=== PATIENT | male | born 1950 | race Caucasian/White ===

== ENCOUNTER 2020-05-12 14:19 | Emergency (ER) | payer MEDICARE ==
[~2020-05-12] VITALS: Ht 180.3 cm; Wt 93.0 kg
[~2020-05-12 14:19] MED LIST: ATENOLOL50 MG PO; CLOPIDOGREL75 MG PO; ERYTHROMYCIN OU; ISOSORBIDE MONO30 MG PO; ROSUVASTATIN CA10 MG PO
[2020-05-12] MEDS ORDERED: HYDROCODONE/APAP 5MG-325MG TAB ONE (14:53)
[2020-05-12] MEDS ORDERED: HYDROCODONE/APAP 5MG-325MG TAB PO ONE (15:15)
--- NOTE | 2020-05-12 15:19 | Diagnostic Imaging Report ---
EXAM: FOOT 3 VIEW RT - [facility] DATE: 05/12/2020 3:05 PM INDICATION: Right foot pain COMPARISON: None FINDINGS: AP, oblique, lateral views are obtained of the right foot. There is no evidence for acute fracture or dislocation. No focal lytic or blastic abnormality is identified. Accessory ossicle noted adjacent to the navicular. Mild degenerative changes noted within the midfoot. Mild plantar calcaneal spurring noted. The surrounding soft tissues are unremarkable without evidence for radiopaque foreign body. IMPRESSION: No acute radiographic abnormality identified within the right foot. Signed by: Dr. Chavez Chua MD on 05/12/2020 3:16 PM
[2020-05-12 16:29] LABS: BASOPHILS # (AUTO) 0.1 (0.0-0.1); BASOPHILS % 0.6 % (0.0-1.0); EOSINOPHILS # (AUTO) 0.3 (0.0-0.4); EOSINOPHILS % 3.8 % (0.0-6.0); HEMATOCRIT 41.8 % (38.2-49.6); HEMOGLOBIN 14.5 g/dL (14.0-18.0); LYMPHOCYTES # (AUTO) 2.2 (1.0-3.2); LYMPHOCYTES % 25.5 % (18.0-39.1); MEAN CORPUSCULAR HEMOGLOBIN 31.9 pg (28-32); MEAN CORPUSCULAR HGB CONC 34.7 g/dL (31-35); MEAN CORPUSCULAR VOLUME 92.1 fL (81-99); MONOCYTES # (AUTO) 0.7 (0.2-0.8); MONOCYTES % 8.5 % (4.4-11.3); NEUTROPHILS # (AUTO) 5.2 (2.1-6.9); NEUTROPHILS % 61.1 % (38.7-80.0); PLATELET COUNT 136 x10e3/uL (140-360); RED BLOOD COUNT 4.54 x10e6/uL (4.3-5.7); RED CELL DISTRIBUTION WIDTH 12.5 % (11.7-14.4)
[2020-05-12 16:55] VITALS: BP 137/79
--- NOTE | 2020-05-12 17:06 | Emergency Department Note ---
History of Present Illnes History of Present Illness Chief Complaint: Extremity Trauma/Pain History of Present Illness This is a 69 year old male Chief Complaint Comment PT STATED HE IS HAVING RIGHT FOOT AND ANKLE PAIN THAT STARTED IN HIS RIGHT GREAT TOE X2 DAYS AGO, PT COMPLAINS OF PAIN, SWELLIING AND REDNESS TO HIS RIGHT FOOT AND ANKLE. . Historian: Patient Arrival Mode: Car Onset (how long ago): day(s) (2) Location: right foot Quality: shrp Radiation: Reports non-radiation Severity: moderate Onset quality: gradual Duration (how long): day(s) (2) Timing of current episode: constant Progression: worsening Chronicity: new Context: Denies recent illness, Denies recent surgery, Denies recent immobilization, Denies recent travel, Denies trauma/injury, Denies new medications, Denies hx of DVT/PE, Denies non-compliance w/ medications, Denies other Relieving factors: none Exacerbating factors: none Associated symptoms: Reports denies other symptoms Treatments prior to arrival: none Past Medical/Family History Physician Review I have reviewed the patient's past medical and family history. Any updates have been documented here. Past Medical History Recent Fever: No Clinical Suspicion of Infectio: No New/Unexplained Change in Ment: No Past Medical History: Hypertension, Hyperlipedemia Past Surgical History: Cholecysctectomy, Colon Resection Other Surgery: 18" COLON REMOVED AFTER 2 DOZEN RAW OYSTERS AND LEAD TO COLON SX HAD COLOSTOMY AND NOW GONE LFT HAND LACERATION REPAIR FROM PLATE GLASS CUT Heart cath with ballooning KIDNEY STONES Social History Smoking Cessation: Never Smoker Counseling Performed: No Alcohol Use: None Any Illegal Drug Use: No Physically hurt or threatened: No Other Any Pre-Existing Lines (PICC,: No Review of Systems Review of Systems Constitutional: Reports no symptoms EENTM: Reports no symptoms Cardiovascular: Reports no symptoms Respiratory: Reports no symptoms Gastrointestinal: Reports no symptoms Genitourinary: Reports no symptoms Musculoskeletal: Reports as per HPI Integumentary: Reports no symptoms Neurological: Reports no symptoms Psychological: Reports no symptoms Endocrine: Reports no symptoms Hematological/Lymphatic: Reports no symptoms Physical Exam Related Data Allergies: Coded Allergies: fentanyl (Verified Adverse Reaction, Intermediate, hallucinations, 11/04/19) Triage Vital Signs Vital Signs Date Time Temp Pulse Resp B/P (MAP) Pulse Ox O2 Delivery O2 Flow Rate FiO2 05/12/20 14:30 99.7 73 16 143/82 96 Room Air Vital signs reviewed: Yes Physical Exam CONSTITUTIONAL HENT EYES NECK PULMONARY CARDIOVASCULAR GASTROINTESTINAL GENITOURINARY SKIN MUSCULOSKELETAL Musculoskeletal: Present tenderness (right foot), Present other NEUROLOGICAL PSYCHOLOGICAL Results Laboratory Result Diagram: 05/12/20 1450 Laboratory Laboratory Tests Test 05/12/20 14:50 White Blood Count 8.44 x10e3/uL (4.8-10.8) Red Blood Count 4.54 x10e6/uL (4.3-5.7) Hemoglobin 14.5 g/dL (14.0-18.0) Hematocrit 41.8 % (38.2-49.6) Mean Corpuscular Volume 92.1 fL (81-99) Mean Corpuscular Hemoglobin 31.9 pg (28-32) Mean Corpuscular Hemoglobin Concent 34.7 g/dL (31-35) Red Cell Distribution Width 12.5 % (11.7-14.4) Platelet Count 136 x10e3/uL (140-360) Neutrophils (%) (Auto) 61.1 % (38.7-80.0) Lymphocytes (%) (Auto) 25.5 % (18.0-39.1) Monocytes (%) (Auto) 8.5 % (4.4-11.3) Eosinophils (%) (Auto) 3.8 % (0.0-6.0) Basophils (%) (Auto) 0.6 % (0.0-1.0) Neutrophils # (Auto) 5.2 (2.1-6.9) Lymphocytes # (Auto) 2.2 (1.0-3.2) Monocytes # (Auto) 0.7 (0.2-0.8) Eosinophils # (Auto) 0.3 (0.0-0.4) Basophils # (Auto) 0.1 (0.0-0.1) Absolute Immature Granulocyte (auto 0.04 x10e3/uL (0-0.1) Uric Acid 8.9 mg/dL (4.8-8.0) Lab results reviewed: Yes Imaging Imaging results reviewed: Yes Assessment & Plan Medical Decision Making MDM gout contuson Reassessment Reassessment better Assessment & Plan Final Impression: (1) Acute gout (2) Right foot pain Depart Disposition: HOME, SELF-CARE Last Vital Signs Date Time Temp Pulse Resp B/P (MAP) Pulse Ox O2 Delivery O2 Flow Rate FiO2 05/12/20 14:30 99.7 73 16 143/82 96 Room Air Home Meds Reported Medications [Erythromycin Ointmt] No Conflict Check, OU PRN 11/04/19 Isosorbide Mononitrate (ISOSORBIDE MONONITRATE ER) 30 Mg Tab.er.24h, 30 MG PO DAILY, #30 TAB 11/04/19 Clopidogrel Bisulfate (CLOPIDOGREL) 75 Mg Tablet, 75 MG PO DAILY, #30 TAB 11/04/19 Rosuvastatin Calcium (Rosuvastatin Calcium) 10 Mg Tablet, 10 MG PO DAILY 11/04/19 Atenolol (ATENOLOL) 50 Mg Tablet, 100 MG PO DAILY 11/04/19 Medications in the ED Acetaminophen/ Hydrocodone Bitart 1 ea STK-MED ONCE .ROUTE ; Start 05/12/20 at 14:53; Stop 05/12/20 at 14:50; Status DC Acetaminophen/ Hydrocodone Bitart 1 ea ONCE ONCE PO Last administered on 05/12/20at 15:15; Admin Dose 1 EA; Start 05/12/20 at 15:15; Stop 05/12/20 at 15:16; Status UNV MARCO REYES MD May 12, 2020 17:06
--- OUTSIDE RECORDS SUMMARY | 2020-05-14 20:22 | XMS REPORT | Clinical Summary ---
Author Author [facility] Organization [facility] Address Unknown Phone Unavailable Care Team Providers Care Adventure Guide Name Role Phone Asked, No Pcp PCP Unavailable Allergies No Known Allergies Medications End Date Status Medication Sig Dispensed Refills Start Date Active atenolol (TENORMIN) 50 MG Take 50 mg by 0 tablet mouth daily. Active aspirin (ECOTRIN) 81 MG Take 81 mg by 0 enteric coated tablet mouth daily. Active Problems Not on file Social History Date Tobacco Use Types Packs/Day Years Used Never Smoker Drinks/Week oz/Week Comments Alcohol Use No Sex Assigned at Date Recorded Not on file Industry Job Start Date Occupation Not on file Not on file Not on file Travel End Travel History Travel Start No recent travel history available. Last Filed Vital Signs Not on file Plan of Treatment Not on file Results Not on fileafter 05/12/2019 Insurance Type Payer Benefit Subscriber ID Effective Phone Address Plan / Dates Group Commercial AARP AARP xxxxxxxxxxx [id number] SUPPLEMENT resent Medicare MEDICARE MEDICARE xxxxxxxxxx 2014- [place], PART A AND Present [place] Advance Directives For more information, please contact: [phone] Patient Personal Development Coach Explanation Type Date Recorded Advance Directives, Living Will and Medical Power of Children'S Lunchroom Supervisor
--- OUTSIDE RECORDS SUMMARY | 2020-05-14 20:22 | XMS REPORT | Continuity of Care Document ---
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 Name Role Phone NONSTAFF PCP Unavailable MARCO REYES Attphys Unavailable ELIF CAMARILLO Attphybrian Unavailable Payers Payer Name Policy Type Policy Number Effective Date Expiration Date Brian palacio [facility] [id number] 2019 00:00:00 [facility] Medicare A & B [id number] 2014 00:00:00 [facility] Problems Condition Name Condition Details Condition Category Status Onset Date Resolution Date Last Treatment Date Treating Clinician Comments Source Acute gout Problem Active [facility] Right foot pain Problem Active [facility] Allergies, Adverse Reactions, Alerts Allergy Name Allergy Type Status Severity Reaction(s) Onset Date Inacti ve Date Treating Clinician Comments Source Fentanyl Propensity to adverse reactions Active Moderate bacon ucinations 2019-11-04 00:00:00 [facility] Social History Social Habit Start Date Stop Date Quantity Comments Source Sex Assigned At Ekaterina montgomeryankit Flower Alcohol intake 2018-04-18 00:00:00 2018-04-18 00:00:00 Current non-drinker of alcohol (finding) Spencer Flower Smoking Status Start Date Stop Date Source Never smoker Spencer craft Medications Ordered Medication Name Filled Medication Name Start Date Stop Da te Current Medication? Ordering Clinician Indication Dosage Frequency Signature (SIG) Comments Components Source atenolol (TENORMIN) 50 MG tablet 2018-04-18 21:27:03 Yes 50mg QD Take 50 mg by mouth daily. Spencer Flower aspirin (ECOTRIN) 81 MG enteric coated tablet 2018-04-18 21:27:0 3 Yes 81mg QD Take 81 mg by mouth daily. Adela Cuevasist Atenolol Atenolol Yes 100 Daily [facility] Clopidogrel Bisulfate (Clopidogrel) 75 Mg TABLET Clopi dogrel Bisulfate (Clopidogrel) 75 Mg TABLET Yes 75 Daily [facility] Erythromycin Ointmt Erythromycin Ointmt Yes As Needed [facility] Isosorbide Mononitrate (Isosorbide Mononitrate Er) 30 Mg TAB.ER.24H Isosorbide Mononitrate (Isosorbide Mononitrate Er) 30 Mg TAB.ER.24H Yes 30 Daily [facility] Rosuvastatin Calcium Rosuvastatin Calcium Yes 10 Daily [facility] Vital Signs Vital Name Observation Time Observation Value Comments Source Body Temperature 2020-05-12 16:55:00 99.1 [degF] [facility] Weight 2020-05-12 14:30:00 205 [lb_av] [facility] BMI (Body Mass Index) 2020-05-12 14:30:00 28.6 kg/m2 [facility] Procedures Procedure Date / Time Performed Performing Clinician Amrita neal DILATION OF RIGHT URETER WITH INTRALUMINAL DEVICE, ENDO 00:00:00 [facility] FLUOROSCOPY OF KIDNEY, URETER & BLADDER USING L OSM CO NTRAST 2019-11-04 00:00:00 [facility] X-ray of chest, two views 2019-11-03 00:00:00 ELIF CAMARILLO [facility] CT of abdomen and pelvis without contrast 2019-11-03 00:00:00 [facility] Plan of Care Planned Activity Planned Date Details Comments Source Instructions Gout [facility] Encounters Start Date/Time End Date/Time Encounter Type Admission Type Attendi [facility] Facility Care Department Encounter ID Source 2020-05-12 14:31:00 2020-05-12 17:09:00 Departed Emergency Room MARCO REYES [facility] [id number] [facility] 2019-11-05 07:54:00 2019-11-07 13:14:00 Discharged Inpatient 1 ELIF CAMARILLO [facility] [id number] [facility] Results Test Description Test Time Test Comments Results Result Comments Source FOOT 3 VIEW RT - HOPD 2020-05-12 15:13:00 [facility] [address] [address] Patient Name: JERRY ALLISON MR #: [id number] : 1950 Age/Sex: 69/M Req #: [id number] Adm Physician: Ordered by: MARCO REYES MD Report #: [id number] Location: [facility] Room/Bed: Procedure: [id number] HOPD/FOOT 3 VIEW RT - HOPD Exam Date: 05/12/20 Exam Time: 1505 REPORT STATUS: Signed EXAM: FOOT 3 VIEW RT - [facility] DATE: 05/12/2020 3:05 PM INDICATION: Right foot pain COMPARISON: None FINDINGS: AP, oblique, lateral views are obtained of the right foot. There is no evidence for acute fracture or dislocation. No focal lytic or blastic abnormality is identified. Accessory ossicle noted adjacent to the navicular. Mild degenerative changes noted within the midfoot. Mild plantar calcaneal spurring noted. The surrounding soft tissues are unremarkable without evidence for radiopaque foreign body. IMPRESSION: No acute radiographic abnormality identified within the right foot. Signed by: Dr. Chavez Chua MD on 05/12/2020 3:16 PM Dictated By: CHAVEZ CHUA MD [id number] Transcribed By: BECKIE on 05/12/202 COPY TO: MARCO REYES MD Blood leukocytes automated count (number/volume) 2020-05-12 14:50:00 Test Item White Blood Count (test code = 6690-2) 8.44 4.8-10.8 [facility] erythrocytes automated count (number/volume)2020-05-12 14:50:00* Test Item Value Reference Range Interpretation Comments Red Blood Count (test code = 789-8) 4.54 4.3-5.7 [facility] TempleBlood hemoglobin measurement (moles/volume)2020-05-12 14:50:00* Test Item Value Reference Range Interpretation Comments Hemoglobin (test code = 72130-2) 14.5 14.0-18.0 [facility] TempleAutomated blood hematocrit (volume fraction)2020-05-12 14:50:00* Test Item Value Reference Range Interpretation Comments Hematocrit (test code = 4544-3) 41.8 38.2-49.6 [facility] TempleAutomated erythrocyte mean corpuscular jowjsx1226-65-22 14:50:00* Test Item Value Reference Range Interpretation Comments Mean Corpuscular Volume (test code = 787-2) 92.1 81-99 [facility] TempleAutomated erythrocyte mean corpuscular hemoglobin (mass per erythrocyte)2020-05-12 14:50:00* Test Item Value Reference Range Interpretation Comments Mean Corpuscular Hemoglobin (test code = 785-6) 31.9 28-32 [facility] TempleAutomated erythrocyte mean corpuscular hemoglobin concentration measurement (mass/volume)2020-05-12 14:50:00* Test Item Value Reference Range Interpretation Comments Mean Corpuscular Hemoglobin Concent (test code = 786-4) 34.7 31-35 [facility] TempleRDW TkmOt-Hcn3710-37-29 14:50:00* Test Item Value Reference Range Interpretation Comments Red Cell Distribution Width (test code = 43657-3) 12.5 11.7 -14.4 [facility] TempleAutomated blood platelet count (count/volume)2020-05-12 14:50:00* Test Item Value Reference Range Interpretation Comments Platelet Count (test code = 777-3) 136 140-360 [facility] TempleAutomated blood segmented neutrophil count as percentage of total vwnpodcild4541-63-51 14:50:00* Test Item Value Reference Range Interpretation Comments Neutrophils (%) (Auto) (test code = 63150-2) 61.1 38.7-80.0 [facility] TempleAutomated blood lymphocyte count as percentage ot total yxkgxwmemp2475-81-84 14:50:00* Test Item Value Reference Range Interpretation Comments Lymphocytes (%) (Auto) (test code = 736-9) 25.5 18.0-39.1 [facility] TempleAutomated blood monocyte count as percentage of total rnxptpsjez7944-86-11 14:50:00* Test Item Value Reference Range Interpretation Comments Monocytes (%) (Auto) (test code = 5905-5) 8.5 4.4-11.3 [facility] TempleAutomated blood eosinophil count as percentage of total fdmgrwyans0175-40-86 14:50:00* Test Item Value Reference Range Interpretation Comments Eosinophils (%) (Auto) (test code = 713-8) 3.8 0.0-6.0 [facility] TempleAutomated blood basophil count as percentage of total szqqxqhwfc4111-05-69 14:50:00* Test Item Value Reference Range Interpretation Comments Basophils (%) (Auto) (test code = 706-2) 0.6 0.0-1.0 [facility] TempleFluoroscopic procedure less than one hour gpjefhis6701-06-46 14:50:00* Test Item Value Reference Range Interpretation Comments IM GRANULOCYTES % (test code = IM GRANULOCYTES %) 0.5 0.0- 1.0 [facility] TempleAutomated blood neutrophil count 2020-05-12 14:50:00* Test Item Value Reference Range Interpretation Comments Neutrophils # (Auto) (test code = 751-8) 5.2 2.1-6.9 [facility] TempleBlood lymphocytes count (number/volume) 2020-05-12 14:50:00* Test Item Value Reference Range Interpretation Comments Lymphocytes # (Auto) (test code = 13220-9) 2.2 1.0-3.2 [facility] TempleBlood monocytes automated count (number/volume)2020-05-12 14:50:00* Test Item Value Reference Range Interpretation Comments Monocytes # (Auto) (test code = 742-7) 0.7 0.2-0.8 [facility] TempleAutomated blood eosinophil count 2020-05-12 14:50:00* Test Item Value Reference Range Interpretation Comments Eosinophils # (Auto) (test code = 711-2) 0.3 0.0-0.4 [facility] TempleAutomated blood basophil count (count/volume)2020-05-12 14:50:00* Test Item Value Reference Range Interpretation Comments Basophils # (Auto) (test code = 704-7) 0.1 0.0-0.1 [facility] TempleFluoroscopic procedure less than one hour hvlconoj5675-44-75 14:50:00* Test Item Value Reference Range Interpretation Comments Absolute Immature Granulocyte (auto (rafiq t code = Absolute Immature Granulocyte (auto) 0.04 0-0.1 [facility] plasma uric acid measurement (mass/volume)2020-05-12 14:50:00* Test Item Value Reference Range Interpretation Comments Uric Acid (test code = 3084-1) 8.9 4.8-8.0 [facility]odium Vnqup3714-89-28 05:02:00* Test Item Value Reference Range Interpretation Comments Sodium Level (test code = 2951-2) 143 136-145 [facility] TemplePotassium Fxoss1810-38-20 05:02:00* Test Item Value Reference Range Interpretation Comments Potassium Level (test code = 2823-3) 3.6 3.5-5.1 [facility] TempleChloride Alfuq7970-52-51 05:02:00* Test Item Value Reference Range Interpretation Comments Chloride Level (test code = 2075-0) 112 98-107 H [facility] TempleCarbon Dioxide Eisfj9299-73-63 05:02:00* Test Item Value Reference Range Interpretation Comments Carbon Dioxide Level (test code = 2028-9) 21 22-29 L [facility] TempleAnion Brp4416-28-04 05:02:00* Test Item Value Reference Range Interpretation Comments Anion Gap (test code = 84686-8) 13.6 8-16 [facility] TempleBlood Urea Glxwusdf8879-50-98 05:02:00* Test Item Value Reference Range Interpretation Comments Blood Urea Nitrogen (test code = 3094-0) 15 7-26 [facility] TempleCreatinine2020-01-24 05:02:00* Test Item Value Reference Range Interpretation Comments Creatinine (test code = 2160-0) 1.28 0.72-1.25 H [facility] TempleBUN/Creatinine Yuzzn5447-33-34 05:02:00* Test Item Value Reference Range Interpretation Comments BUN/Creatinine Ratio (test code = 3097-3) 12 - [facility] TempleEstimat Glomerular Filtration Rate 2019-11-07 05:02:00* Test Item Value Reference Range Interpretation Comments Estimat Glomerular Filtration Rate (test code = 256533870) 56 >60 L Ranges were taken from the National Kidney Disease Education Program and the April [facility] Kidney Foundation literature.Reference ranges:60 or greater: Jdlsrt67-40 ( for 3 consecutive months): Chronic kidney disease 15 or less: Kidney failureBaylor Scott & White Medical Center – TempleGlucose Dbkoz1362-00-55 05:02:00* Test Item Value Reference Range Interpretation Comments Glucose Level (test code = WSI3513) 110 74-118 [facility] TempleCalcium Idybc3364-84-73 05:02:00* Test Item Value Reference Range Interpretation Comments Calcium Level (test code = 33016-0) 8.6 8.4-10.2 [facility] TempleWhite Blood Kreca9792-21-04 04:44:00* Test Item Value Reference Range Interpretation Comments White Blood Count (test code = 6690-2) 7.69 4.8-10.8 [facility] TempleRed Blood Wfrqe5832-05-43 04:44:00* Test Item Value Reference Range Interpretation Comments Red Blood Count (test code = 789-8) 3.85 4.3-5.7 L [facility] TempleHemoglobin2020-01-24 04:44:00* Test Item Value Reference Range Interpretation Comments Hemoglobin (test code = 15897-5) 12.7 14.0-18.0 L [facility] TempleHematocrit2020-01-24 04:44:00* Test Item Value Reference Range Interpretation Comments Hematocrit (test code = 4544-3) 36.4 38.2-49.6 L [facility] TempleMean Corpuscular Jlfyjw6805-55-38 04:44:00* Test Item Value Reference Range Interpretation Comments Mean Corpuscular Volume (test code = 787-2) 94.5 81-99 [facility] TempleMean Corpuscular Latsrilgff1614-17-42 04:44:00* Test Item Value Reference Range Interpretation Comments Mean Corpuscular Hemoglobin (test code = 785-6) 33.0 28-32 H [facility] TempleMean Corpuscular Hemoglobin Concent 2019-11-07 04:44:00* Test Item Value Reference Range Interpretation Comments Mean Corpuscular Hemoglobin Concent (test code = 786-4) 34.9 31-35 [facility] TempleRed Cell Distribution Duobb1974-79-72 04:44:00* Test Item Value Reference Range Interpretation Comments Red Cell Distribution Width (test code = 82079-8) 13.2 11.7 -14.4 [facility] TemplePlatelet Ehers0874-35-09 04:44:00* Test Item Value Reference Range Interpretation Comments Platelet Count (test code = 777-3) 121 140-360 L [facility] TempleNeutrophils (%) (Auto)2019-11-07 04:44:00 * Test Item Value Reference Range Interpretation Comments Neutrophils (%) (Auto) (test code = 73706-0) 54.4 38.7-80.0 [facility] TempleLymphocytes (%) (Auto)2019-11-07 04:44:00 * Test Item Value Reference Range Interpretation Comments Lymphocytes (%) (Auto) (test code = 736-9) 27.7 18.0-39.1 [facility] TempleMonocytes (%) (Auto)2019-11-07 04:44:00* Test Item Value Reference Range Interpretation Comments Monocytes (%) (Auto) (test code = 5905-5) 10.1 4.4-11.3 [facility] TempleEosinophils (%) (Auto)2019-11-07 04:44:00 * Test Item Value Reference Range Interpretation Comments Eosinophils (%) (Auto) (test code = 713-8) 3.9 0.0-6.0 [facility] TempleBasophils (%) (Auto)2019-11-07 04:44:00* Test Item Value Reference Range Interpretation Comments Basophils (%) (Auto) (test code = 706-2) 0.8 0.0-1.0 [facility] TempleIM GRANULOCYTES %2019-11-07 04:44:00* Test Item Value Reference Range Interpretation Comments IM GRANULOCYTES % (test code = IM GRANULOCYTES %) 3.1 0.0- 1.0 H [facility] TempleNeutrophils # (Auto)2019-11-07 04:44:00* Test Item Value Reference Range Interpretation Comments Neutrophils # (Auto) (test code = 751-8) 4.2 2.1-6.9 [facility] TempleLymphocytes # (Auto)2019-11-07 04:44:00* Test Item Value Reference Range Interpretation Comments Lymphocytes # (Auto) (test code = 76422-6) 2.1 1.0-3.2 [facility] TempleMonocytes # (Auto)2019-11-07 04:44:00* Test Item Value Reference Range Interpretation Comments Monocytes # (Auto) (test code = 742-7) 0.8 0.2-0.8 [facility] TempleEosinophils # (Auto)2019-11-07 04:44:00* Test Item Value Reference Range Interpretation Comments Eosinophils # (Auto) (test code = 711-2) 0.3 0.0-0.4 [facility] TempleBasophils # (Auto)2019-11-07 04:44:00* Test Item Value Reference Range Interpretation Comments Basophils # (Auto) (test code = 704-7) 0.1 0.0-0.1 [facility] TempleAbsolute Immature Granulocyte (auto 2019-11-07 04:44:00* Test Item Value Reference Range Interpretation Comments Absolute Immature Granulocyte (auto (rafiq t code = Absolute Immature Granulocyte (auto) 0.24 0-0.1 H [facility]ererum or plasma sodium measurement (moles/volume)2019-11-07 03:00:00* Test Item Value Reference Range Interpretation Comments Sodium Level (test code = 2951-2) 143 136-145 [facility] Centererum or plasma potassium measurement (moles/volume)2019-11-07 03:00:00* Test Item Value Reference Range Interpretation Comments Potassium Level (test code = 2823-3) 3.6 3.5-5.1 [facility] Centererum or plasma chloride measurement (moles/volume)2019-11-07 03:00:00* Test Item Value Reference Range Interpretation Comments Chloride Level (test code = 2075-0) 112 98-107 [facility] Centererum or plasma carbon dioxide, total measurement (moles/volume)2019-11-07 03:00:00* Test Item Value Reference Range Interpretation Comments Carbon Dioxide Level (test code = 2028-9) 21 22-29 [facility] Centererum or plasma anion cke0217-00-54 03:00:00* Test Item Value Reference Range Interpretation Comments Anion Gap (test code = 77039-8) 13.6 8-16 [facility] Centererum or plasma urea nitrogen measurement (mass/volume)2019-11-07 03:00:00* Test Item Value Reference Range Interpretation Comments Blood Urea Nitrogen (test code = 3094-0) 15 7-26 [facility] Centererum or plasma creatinine measurement (mass/volume)2019-11-07 03:00:00* Test Item Value Reference Range Interpretation Comments Creatinine (test code = 2160-0) 1.28 0.72-1.25 [facility] Centererum or plasma urea nitrogen/creatinine mass zwowx4178-02-42 03:00:00* Test Item Value Reference Range Interpretation Comments BUN/Creatinine Ratio (test code = 3097-3) 12 6-25 [facility] TempleEstimated glomerular filtration rate (GFR) csvlgzycksjhy9749-95-02 03:00:00* Test Item Value Reference Range Interpretation Comments Estimat Glomerular Filtration Rate (test code = 382647201) 56 >60 Ranges were taken from the National Kidney Disease Education Program and the [facility] Kidney Foundation literature.Reference ranges:60 or greater: Kljotw17-72 ( for 3 consecutive months): Chronic kidney disease 15 or less: Kidney failureCHI Northeast Baptist HospitalGlucose dmyayrgfbdj4771-55-74 03:00:00* Test Item Value Reference Range Interpretation Comments Glucose Level (test code = AHB2974) 110 74-118 [facility]ererum or plasma calcium measurement (mass/volume)2019-11-07 03:00:00* Test Item Value Reference Range Interpretation Comments Calcium Level (test code = 35993-7) 8.6 8.4-10.2 [facility] TempleParathyroid Flepart9272-02-81 08:17:00* Test Item Value Reference Range Interpretation Comments Parathyroid Hormone (test code = 2731-8) 30 15-65 [facility] TempleCalcium (Send out)2019-11-06 08:17:00* Test Item Value Reference Range Interpretation Comments Calcium (Send out) (test code = 28167-0) 8.9 8.6-10.2 [facility] TempleParathyroid Hormone Interpretation 2019-11-06 08:17:00* Test Item Value Reference Range Interpretation Comments Parathyroid Hormone Interpretation (test code = Parathyroid Hormone Interpretation) Comment . Interpretation Intact PTH Calcium (pg/mL) (mg/dL)Normal 15 - 65 8.6 - 10.2Pr imary Hyperparathyroidism >65 >10.2Secondary Hyperparathyroidism >65 <10.2Non-Parathyroid Hypercalcemia <65 >10.2Hypoparathyroidism <15 < 8.6Non- Parathyroid Hypocalcemia 15 - 65 < 8.6Performed at: - Lab[address] [id number] Director: Daniel Alvarado MD, Phone: [phone] at: [facility] Lab[address] [id number] Director: Stephanie Back MD, Phone: [phone] [facility] HospitalUric Znzt4874-38-89 06:23:00* Test Item Value Reference Range Interpretation Comments Uric Acid (test code = 3084-1) 8.9 4.8-8.0 H [facility] TempleMagnesium Zpdfw1080-48-91 06:08:00* Test Item Value Reference Range Interpretation Comments Magnesium Level (test code = 70943-8) 1.6 1.3-2.1 [facility] Centererum or plasma magnesium measurement (mass/volume)2019-11-05 04:20:00* Test Item Value Reference Range Interpretation Comments Magnesium Level (test code = 04168-7) 1.6 1.3-2.1 [facility] Centererum or plasma intact pararthyroid hormone measurement (mass/volume)2019-11-05 04:20:00* Test Item Value Reference Range Interpretation Comments Parathyroid Hormone (test code = 2731-8) 30 15-65 [facility] Centererum or plasma calcium measurement (mass/volume)2019-11-05 04:20:00* Test Item Value Reference Range Interpretation Comments Calcium (Send out) (test code = 50217-3) 8.9 8.6-10.2 [facility] TempleFluoroscopic procedure less than one hour nsfoinny1378-00-66 04:20:00* Test Item Value Reference Range Interpretation Comments Parathyroid Hormone Interpretation (test code = Parathyroid Hormone Interpretation) Comment . Interpretation Intact PTH Calcium (pg/mL) (mg/dL)Normal 15 - 65 8.6 - 10.2Pr imary Hyperparathyroidism >65 >10.2Secondary Hyperparathyroidism >65 <10.2Non-Parathyroid Hypercalcemia <65 >10.2Hypoparathyroidism <15 < 8.6Non- Parathyroid Hypocalcemia 15 - 65 < 8.6Performed at: [facility] LabCo[address] [id number] Director: Daniel Alvarado MD, Phone: [phone] at: BN - LabMdrp [address] [id number] Director: Stephanie Back MD, Phone: [phone] Scott & White Medical Center – TempleHemoglobin A1c Mivuldp0590-04-36 08:56:00* Test Item Value Reference Range Interpretation Comments Hemoglobin A1c Percent (test code = Hemoglobin A1c Percent) 5.5 4.0-7.0 [facility] TempleB-Type Natriuretic Csmhtbw1066-11-73 08:11:00* Test Item Value Reference Range Interpretation Comments B-Type Natriuretic Peptide (test code = 35579-8) 169.5 0-100 H [facility] TempleUrine MXA4186-37-59 07:43:00* Test Item Value Reference Range Interpretation Comments Urine WBC (test code = 5821-4) 0-5 0-5 [facility] TempleUrine UVU9919-30-00 07:43:00* Test Item Value Reference Range Interpretation Comments Urine RBC (test code = 20758-5) >50 0-5 H [facility] TempleUrine Mnlepvxw3718-73-60 07:43:00* Test Item Value Reference Range Interpretation Comments Urine Bacteria (test code = 40244-1) MODERATE NONE H [facility] TempleUrine Epithelial Jmgqb1009-75-67 07:43:00 * Test Item Value Reference Range Interpretation Comments Urine Epithelial Cells (test code = 48790-9) FEW NONE [facility] TempleUrine Amorphous Hinafrre3425-61-96 07:43:00* Test Item Value Reference Range Interpretation Comments Urine Amorphous Sediment (test code = 8246-1) MODERATE FEW H [facility] TempleUrine Cbnrd6891-91-62 07:38:00* Test Item Value Reference Range Interpretation Comments Urine Color (test code = 5778-6) BROWN YELLOW H [facility] TempleUrine Reemvpp6668-50-97 07:38:00* Test Item Value Reference Range Interpretation Comments Urine Clarity (test code = 02408-8) CLOUDY CLEAR H [facility] TempleUrine Specific Ebtgrkh6213-09-84 07:38:00 * Test Item Value Reference Range Interpretation Comments Urine Specific Ivins (test code = 5811-5) 1.030 1.010-1.02 5 H [facility] hT5820-60-63 07:38:00* Test Item Value Reference Range Interpretation Comments Urine pH (test code = 78442-2) 5.5 5-7 [facility] [facility] Leuk[facility] Mqzrnrpw0239-18-72 07:38:00* Test Item Value Reference Range Interpretation Comments Urine Leukocyte Esterase (test code = 5799-2) NEGATIVE NEGATIVE [facility] Lgdntso7191-65-51 07:38:00* Test Item Value Reference Range Interpretation Comments Urine Nitrite (test code = 95580-1) NEGATIVE NEGATIVE [facility] Yqcckfv0704-33-04 07:38:00* Test Item Value Reference Range Interpretation Comments Urine Protein (test code = 5804-0) 3+ NEGATIVE H [facility] Glucose (UA)2019-11-04 07:38:00* Test Item Value Reference Range Interpretation Comments Urine Glucose (UA) (test code = 2349-9) NEGATIVE NEGATIVE [facility] Ytpmioi7367-88-66 07:38:00* Test Item Value Reference Range Interpretation Comments Urine Ketones (test code = 47404-6) NEGATIVE NEGATIVE [facility] Fymuntkaezzl1093-83-93 07:38:00* Test Item Value Reference Range Interpretation Comments Urine Urobilinogen (test code = 72832-0) 0.2 0.2-1 [facility] Yamxynbjj1514-52-28 07:38:00* Test Item Value Reference Range Interpretation Comments Urine Bilirubin (test code = 1978-6) SMALL NEGATIVE Confirmatory test currently unavailable. False positive results may occur.[facility] Jutkc2286-44-66 07:38:00* Test Item Value Reference Range Interpretation Comments Urine Blood (test code = 55981-1) 3+ NEGATIVE [facility] Opiates Ptyqvg3581-57-93 07:36:00* Test Item Value Reference Range Interpretation Comments Urine Opiates Screen (test code = 36355-2) POSITIVE NEGATIVE H This test provides only a screen. Positive results should be repeated by a confi rmatory test.[facility] Barbit[facility] Screen 2019-11-04 07:36:00* Test Item Value Reference Range Interpretation Comments Urine Barbiturates Screen (test code = 475621317) NEGATIVE NEGA TIVE [facility] Phencyclidine Dcheqh3092-47-00 07:36:00* Test Item Value Reference Range Interpretation Comments Urine Phencyclidine Screen (test code = 45169-2) NEGATIVE NEGAT RUBY [facility] Amphetamines Hxzvyr6748-71-44 07:36:00* Test Item Value Reference Range Interpretation Comments Urine Amphetamines Screen (test code = 75694-3) NEGATIVE NEGATI VE [facility] Methamphetamines Cymwsg0063-03-44 07:36:00* Test Item Value Reference Range Interpretation Comments Urine Methamphetamines Screen (test code = Urine Metha mphetamines Screen) NEGATIVE NEGATIVE [facility] Benzodiazepines Lktove8160-94-20 07:36:00* Test Item Value Reference Range Interpretation Comments Urine Benzodiazepines Screen (test code = 84069-2) NEGATIVE NEG ATIVE [facility] Cocaine Nvksmq9006-82-07 07:36:00* Test Item Value Reference Range Interpretation Comments Urine Cocaine Screen (test code = 3398-5) NEGATIVE NEGATIVE [facility] Cannabinoids Llceou7062-24-50 07:36:00* Test Item Value Reference Range Interpretation Comments Urine Cannabinoids Screen (test code = 97189-6) NEGATIVE NEGATI VE THESE RESULTS ARE FOR MEDICAL TREATMENT ONLYTHIS REPORT CONTAINS UNCONFIR MED SCREENING RESULTS*POSITIVE RESULTS WILL BE CONFIRMED BY REFERENCE LAB UPON R EQUEST CUT-OFFDRUG CLASS CONCENTRATION ng/mLAmphetamines 1000Methamphetamines 1000Cocaine 300Opiate 300Phencyc lidine 25Cannabinoid 50Barbiturates 300Benzodiazepine 300Methadone 300[facility] Odzmdd5211-87-17 07:36:00* Test Item Value Reference Range Interpretation Comments Urine Methadone Screen (test code = 71811-1) NEGATIVE NEGATIVE THESE RESULTS ARE FOR MEDICAL TREATMENT ONLYTHIS REPORT CONTAINS UNCONFIR MED SCREENING RESULTS*POSITIVE RESULTS WILL BE CONFIRMED BY REFERENCE LAB UPON R EQUEST CUT-OFFDRUG CLASS CONCENTRATION ng/mLAmphetamines 1000Methamphetamines 1000Cocaine Metabolite 300Opiate 300Phencyc lidine 25Cannabinoid 50Barbiturates 300Benzodiazepine 300Methadone 300[facility] HospitalFluor[facility] procedure less than one hour zkaikdud7053-00-28 06:00:00* Test Item Value Reference Range Interpretation Comments Hemoglobin A1c Percent (test code = Hemoglobin A1c Percent) 5.5 4.0-7.0 [facility] Temple[facility]NP Vsq-wRrj7773-31-21 06:00:00* Test Item Value Reference Range Interpretation Comments B-Type Natriuretic Peptide (test code = 10020-2) 169.5 0-100 [facility] Temple[facility] color mjllewhceeijn7592-17-25 05:34:00* Test Item Value Reference Range Interpretation Comments Urine Color (test code = 5778-6) BROWN YELLOW [facility] ksppiiq9527-93-17 05:34:00* Test Item Value Reference Range Interpretation Comments Urine Clarity (test code = 02078-1) [facility]OU[facility] by Test strip 2019-11-04 05:34:00* Test Item Value Reference Range Interpretation Comments Urine Specific Ivins (test code = 5811-5) 1.030 1.010-1.02 5 [facility] pH measurement by automated test zfthu5429-48-18 05:34:00* Test Item Value Reference Range Interpretation Comments Urine pH (test code = 05909-3) 5.5 5-7 [facility] leukocyte esterase detection by vkuotucj7103-76-63 05:34:00* Test Item Value Reference Range Interpretation Comments Urine Leukocyte Esterase (test code = 5799-2) NEGATIVE NEGATIVE [facility] nitrite bhvunupcb9030-82-17 05:34:00* Test Item Value Reference Range Interpretation Comments Urine Nitrite (test code = 19326-1) NEGATIVE NEGATIVE [facility] protein measurement by test strip (mass/volume)2019-11-04 05:34:00* Test Item Value Reference Range Interpretation Comments Urine Protein (test code = 5804-0) 3+ NEGATIVE [facility] glucose enhgtcmfn6632-58-88 05:34:00* Test Item Value Reference Range Interpretation Comments Urine Glucose (UA) (test code = 2349-9) NEGATIVE NEGATIVE [facility] ketones detection by automated test bgzbe4756-59-46 05:34:00* Test Item Value Reference Range Interpretation Comments Urine Ketones (test code = 76014-1) NEGATIVE NEGATIVE [facility] Temple[facility] opiates screening esmc6875-25-51 05:34:00* Test Item Value Reference Range Interpretation Comments Urine Opiates Screen (test code = 03599-8) POSITIVE NEGATIVE This test provides only a screen. Positive results should be repeated by a confi rmatory test.[facility] Temple[facility]bit[facility] screen, urine 2019-11-04 05:34:00* Test Item Value Reference Range Interpretation Comments Urine Barbiturates Screen (test code = 571892327) NEGATIVE NEGA TIVE [facility] Temple[facility] phencyclidine detection by screening gnyqfv6020-75-62 05:34:00* Test Item Value Reference Range Interpretation Comments Urine Phencyclidine Screen (test code = 91187-0) NEGATIVE NEGAT RUBY [facility] amphetamines detection by screen method > 1000 ng/qD2508-52-40 05:34:00* Test Item Value Reference Range Interpretation Comments Urine Amphetamines Screen (test code = 02416-1) NEGATIVE NEGATI VE [facility] TempleFluoroscopic procedure less than one hour zjoqwuac7913-41-06 05:34:00* Test Item Value Reference Range Interpretation Comments Urine Methamphetamines Screen (test code = Urine Metha mphetamines Screen) NEGATIVE NEGATIVE [facility] benzodiazepines detection by screening ghgysf9654-47-68 05:34:00* Test Item Value Reference Range Interpretation Comments Urine Benzodiazepines Screen (test code = 08032-2) NEGATIVE NEG ATIVE [facility] Temple[facility] cocaine measurement (mass/volume) 2019-11-04 05:34:00* Test Item Value Reference Range Interpretation Comments Urine Cocaine Screen (test code = 3398-5) NEGATIVE NEGATIVE [facility] Temple[facility] cannabinoids detection by screening ykbvtp6717-25-49 05:34:00* Test Item Value Reference Range Interpretation Comments Urine Cannabinoids Screen (test code = 58112-1) NEGATIVE NEGATI VE THESE RESULTS ARE FOR MEDICAL TREATMENT ONLYTHIS REPORT CONTAINS UNCONFIR MED SCREENING RESULTS*POSITIVE RESULTS WILL BE CONFIRMED BY REFERENCE LAB UPON R EQUEST CUT-OFFDRUG CLASS CONCENTRATION ng/mLAmphetamines 1000Methamphetamines 1000Cocaine 300Opiate 300Phencyc lidine 25Cannabinoid 50Barbiturates 300Benzodiazepine 300Methadone 300[facility] Temple[facility] methadone decpkc8956-97-04 05:34:00* Test Item Value Reference Range Interpretation Comments Urine Methadone Screen (test code = 24332-8) NEGATIVE NEGATIVE THESE RESULTS ARE FOR MEDICAL TREATMENT ONLYTHIS REPORT CONTAINS UNCONFIR MED SCREENING RESULTS*POSITIVE RESULTS WILL BE CONFIRMED BY REFERENCE LAB UPON R EQUEST CUT-OFFDRUG CLASS CONCENTRATION ng/mLAmphetamines 1000Methamphetamines 1000Cocaine Metabolite 300Opiate 300Phencyc lidine 25Cannabinoid 50Barbiturates 300Benzodiazepine 300Methadone 300[facility] Temple[facility] urobilinogen measurement by test strip (mass/volume)2019-11-04 05:34:00* Test Item Value Reference Range Interpretation Comments Urine Urobilinogen (test code = 24986-3) 0.2 0.2-1 [facility] total bilirubin measurement (mass/volume)2019-11-04 05:34:00* Test Item Value Reference Range Interpretation Comments Urine Bilirubin (test code = 1978-6) SMALL NEGATIVE Confirmatory test currently unavailable. False positive results may occur.[facility] Temple[facility] erythrocytes bmfvkszhx6578-35-96 05:34:00* Test Item Value Reference Range Interpretation Comments Urine Blood (test code = 54008-9) 3+ NEGATIVE [facility] TempleAutomated urine sediment leukocyte count by microscopy (number/high power field)2019-11-04 05:34:00* Test Item Value Reference Range Interpretation Comments Urine WBC (test code = 5821-4) 0-5 0-5 [facility] TempleErythrocytes detection in urine sediment by light kilwnqjccl3886-86-72 05:34:00* Test Item Value Reference Range Interpretation Comments Urine RBC (test code = 29836-4) >50 0-5 [facility] TempleBacteria detection in urine sediment by light xbmzeltnkg0800-93-13 05:34:00* Test Item Value Reference Range Interpretation Comments Urine Bacteria (test code = 20857-6) MODERATE NONE [facility] TempleEpithelial cells detection in urine sediment by light swwyfobcyd8250-74-28 05:34:00* Test Item Value Reference Range Interpretation Comments Urine Epithelial Cells (test code = 53194-3) FEW NONE [facility] TempleAmorphous sediment detection in urine sediment by light damkpixdbq1286-39-65 05:34:00* Test Item Value Reference Range Interpretation Comments Urine Amorphous Sediment (test code = 8246-1) MODERATE FEW [facility] TempleCHEST 2 ZVVIJ0823-49-16 21:05:00 [facility] [address] [place] [address] Patient Name: JERRY ALLISON MR #: [id number] : 1950 Age/Sex: 69/M Req #: [id number] Adm Physician: Ordered by: ELIF CAMARILLO DO Report #: [id number] Location: [facility]/Bed: Procedure: [id number] DX/CHES T 2 VIEWS Exam Date: 11/03/19 Exam Time: 1914 REPORT STATUS: Signed EXAMINATION: EST 2 VIEWS INDICATION: Short of breath COMPARISON: Same day abdominal CT FINDINGS: TUBES and LINES: None. LUNGS: No rmal lung volumes. There is bibasilar atelectasis. Prominent central pulmona ry vasculature. PLEURA: No pleural effusion or pneumothorax. HEART AN D MEDIASTINUM: Cardiac size is mildly enlarged. Aortic calcifications. BONES AND SOFT TISSUES: No acute osseous lesion. Soft tissues are unremar kable. Healed left midclavicular fracture deformity. UPPER ABDOMEN: No free air under the diaphragm. There are cholecystectomy clips. IMPRESSION: Mild cardiomegaly and central pulmonary vascular congestion. Signed by: Abdifatah Alvarez DO on 11/03/2019 9:06 PM Dictated By: ABDIFATAH ALVAREZ DO 05 Transcribed By : BECKIE on 11/03/192105 COPY TO: ELIF CAMARILLO DO CT ABDOMEN/PELVIS TD8633-37-04 20:36:00 [place] [address] Patient Name: JERRY ALLISON MR #: [id number] : 1950 Age/Sex: 69/M Req #: [id number] Adm Physician: Ordered by: MARCO REYES MD Report #: [id number] Location: ER Room/Bed: Procedure: [id number] CT/C T ABDOMEN/PELVIS WO Exam Date: 11/03/19 Exam Time: 1 5 REPORT STATUS: Signed EXAM: CT Abdomen and Pelvis WITHOUT contrast INDICATION: Right lower quadrant pain COMPARISON: None. TECHNIQUE: Abdomen and pelvis were scanned utilizing a multidetector helical scanner from the lung base to the pubic symphysis withou t administration of IV contrast. Absence of intravenous contrast decreases sen sitivity for detection of focal lesions and vascular pathology. Coronal and sa gittal reformations were obtained. Routine protocol was performed. IV CONTRAST: None ORAL CONTRAST: None COMPLICATIONS: None RADIATION DOSE: Total DLP: 707 mGy*cm Estimated effective dose : (DLP x 0.015 x size factor) mSv CTDIvol has been reviewed. It is below the limits set by the Radiation Protocol Committee (RPC). Dose modulati on, iterative reconstruction, and/or weight based adjustment of the mA/kV was utilized to reduce the radiation dose to as low as reasonably achievable. FINDINGS: LINES and TUBES: None. LOWER THORAX: Calcific granuloma in the right middle lobe. Bibasilar atelectasis. Triple vessel coronary artery c alcific atherosclerosis. Calcifications of the aortic valve. Mild cardiomegaly . HEPATOBILIARY: Nodular hepatic surface contour. No focal hepatic lesions . No biliary ductal dilation. GALLBLADDER: There are cholecystectomy cli ps. SPLEEN: Splenomegaly, measures up to 15.8 cm. PANCREAS: No focal masses or ductal dilatation. ADRENALS: No adrenal nodules KIDNE YS/URETERS: A 4 mm calculus in the mid right ureter with mild upstream right h ydroureteronephrosis. No cystic or solid mass lesions. GI TRACT: N o abnormal distention, wall thickening, or evidence of bowel obstruction. Mult iple colonic diverticuli. Appendix is normal. PELVIC ORGANS/BLADDER: U nremarkable. LYMPH NODES: No lymphadenopathy. VESSELS: There is mild a therosclerotic disease in the aorta and major arterial branches. PERITONE UM / RETROPERITONEUM: No free air or fluid. BONES: Unremarkable. Degenerati ve changes in the spine hips and pelvis. SOFT TISSUES: Bilateral gynecomast ia. Multiple fat-containing ventral abdominal hernias, including a 11.5 cm lef t lower abdominal hernia which contains some fluid and fat stranding. IMPRESSION: 1. A 4 mm calculus in the mid right ureter with mild u pstream right hydroureteronephrosis. 2. Mild inflammatory changes in the le ft lower ventral abdominal hernia, fat strangulation is possible. 3. Hepati c cirrhosis with evidence of portal hypertension such as splenomegaly. 4. C oronary artery calcific atherosclerosis. 5. Colonic diverticulosis without di verticulitis. Signed by: Abdifatah Alvarez DO on 11/03/2019 8:44 PM Dic tated By: ABDIFATAH ALVAREZ DO 43 Transcribed By: BECKIE on 11/03/192043 COPY TO: MARCO VILLELA MD Total Bkoqgwqxa9154-47-01 19:19:00* Test Item Value Reference Range Interpretation Comments Total Bilirubin (test code = 1975-2) 1.0 0.2-1.2 [facility] TempleAspartate Amino Transf (AST/SGOT) 2019-11-03 19:19:00* Test Item Value Reference Range Interpretation Comments Aspartate Amino Transf (AST/SGOT) (test code = Aspartate Amino Transf (AST/SGOT)) 30 5-34 [facility] TempleAlanine Aminotransferase (ALT/SGPT) 2019-11-03 19:19:00* Test Item Value Reference Range Interpretation Comments Alanine Aminotransferase (ALT/SGPT) (test code = 1742-6) 36 0-55 [facility] TempleTotal Sdbxlpw6489-24-84 19:19:00* Test Item Value Reference Range Interpretation Comments Total Protein (test code = 2885-2) 6.6 6.5-8.1 [facility] TempleAlbumin2020-01-20 19:19:00* Test Item Value Reference Range Interpretation Comments Albumin (test code = 1751-7) 4.0 3.5-5.0 [facility] TempleGlobulin2020-01-20 19:19:00* Test Item Value Reference Range Interpretation Comments Globulin (test code = 88414-6) 2.6 2.3-3.5 [facility] TempleAlbumin/Globulin Pnvfx4881-47-74 19:19:00 * Test Item Value Reference Range Interpretation Comments Albumin/Globulin Ratio (test code = 1759-0) 1.5 0.8-2.0 [facility] TempleAlkaline Utmtsjwuldf3141-29-25 19:19:00* Test Item Value Reference Range Interpretation Comments Alkaline Phosphatase (test code = 6768-6) 80 40-150 [facility] TempleLipase2020-01-20 19:19:00* Test Item Value Reference Range Interpretation Comments Lipase (test code = 3040-3) 57 8-78 [facility] plasma total bilirubin measurement (mass/volume)2019-11-03 17:49:00* Test Item Value Reference Range Interpretation Comments Total Bilirubin (test code = 1975-2) 1.0 0.2-1.2 [facility] TempleFluoroscopic procedure less than one hour qyenhwsn4451-28-93 17:49:00* Test Item Value Reference Range Interpretation Comments Aspartate Amino Transf (AST/SGOT) (test code = Aspartate Amino Transf (AST/SGOT)) 30 5-34 [facility]rum or plasma alanine aminotransferase measurement (enzymatic activity/volume)2019-11-03 17:49:00* Test Item Value Reference Range Interpretation Comments Alanine Aminotransferase (ALT/SGPT) (test code = 1742-6) 36 0-55 [facility]rum or plasma protein measurement (mass/volume)2019-11-03 17:49:00* Test Item Value Reference Range Interpretation Comments Total Protein (test code = 2885-2) 6.6 6.5-8.1 [facility] or plasma albumin measurement (mass/volume)2019-11-03 17:49:00* Test Item Value Reference Range Interpretation Comments Albumin (test code = 1751-7) 4.0 3.5-5.0 [facility] TemplePlasma globulin measurement (mass/volume) 2019-11-03 17:49:00* Test Item Value Reference Range Interpretation Comments Globulin (test code = 75037-1) 2.6 2.3-3.5 [facility]rum or plasma albumin/globulin mass npvae8133-89-20 17:49:00* Test Item Value Reference Range Interpretation Comments Albumin/Globulin Ratio (test code = 1759-0) 1.5 0.8-2.0 [facility]rum or plasma alkaline phosphatase measurement (enzymatic activity/volume)2019-11-03 17:49:00* Test Item Value Reference Range Interpretation Comments Alkaline Phosphatase (test code = 6768-6) 80 40-150 [facility]rum or plasma lipase measurement (enzymatic activity/volume)2019-11-03 17:49:00* Test Item Value Reference Range Interpretation Comments Lipase (test code = 3040-3) 57 8-78 [facility]
== END 2020-05-12 17:09 | disposition home or self-care (01) ==
LOC: FSED 14:31
DX: M10.9 Gout, unspecified (principal); M25.571 Pain in right ankle and joints of right foot; I10 Essential (primary) hypertension; E78.5 Hyperlipidemia, unspecified; Z98.0 Intestinal bypass and anastomosis status
CPT/HCPCS: 36415; 84550; 85025; 99284

== ENCOUNTER 2020-06-30 16:23 | Emergency (ER) | payer MEDICARE ==
[~2020-06-30] VITALS: Ht 180.3 cm; Wt 93.0 kg
[2020-06-30] MEDS ORDERED: KETOROLAC TROMETHAMINE 30 MG/ML VIAL IM STA (16:39)
[2020-06-30] MEDS ORDERED: DEXAMETHASONE SOD PHOS 10 MG/1 ML VIAL IM ONE (16:45)
[2020-06-30] MEDS ORDERED: HYDROCODONE/APAP 5MG-325MG TAB PO ONE (16:45)
--- OUTSIDE RECORDS SUMMARY | 2020-06-30 17:09 | XMS REPORT | Clinical Summary ---
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
--- OUTSIDE RECORDS SUMMARY | 2020-06-30 17:10 | XMS REPORT | Continuity of Care Document ---
Author Author [facility] t Organization 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 Control Engineer Name Role Phone NONSTAFF PCP Unavailable MARCO REYES Attphys Unavailable ELIF CAMARILLO Attphys Unavailable Payers Payer Name Policy Type Policy Number Effective Date Expiration Date Arabella palacio [facility] [id number] 2019 00:00:00 [facility] Medicare A & B [id number] 2014 00:00:00 [facility] Problems Condition Name Condition Details Condition Category Status Onset Date Resolution Date Last Treatment Date Treating Clinician Comments Source Acute gout Problem Active [facility] Right foot pain Problem Active [facility] Allergies, Adverse Reactions, Alerts Allergy Name Allergy Type Status Severity Reaction(s) Onset Date Inacti ve Date Treating Clinician Comments Source Fentanyl Propensity to adverse reactions Active Moderate bacon ucinations 2019-11-04 00:00:00 [facility] Social History Social Habit Start Date Stop [...] Take 81 mg by mouth daily. Adela cortes [employer] Atenolol Atenolol Yes 100 Daily [facility] Clopidogrel Bisulfate (Clopidogrel) 75 Mg TABLET Clopi dogrel Bisulfate (Clopidogrel) 75 Mg TABLET Yes 75 Daily [facility] Erythromycin Ointmt Erythromycin Ointmt Yes As Needed [facility] Isosorbide Mononitrate (Isosorbide Mononitrate Er) 30 Mg TAB.ER.24H Isosorbide Mononitrate (Isosorbide Mononitrate Er) 30 Mg TAB.ER.24H Yes 30 Daily [facility] Rosuvastatin Calcium Rosuvastatin Calcium Yes 10 Daily [facility] Vital Signs Vital Name Observation Time Observation Value Comments Source Body Temperature 2020-05-12 16:55:00 99.1 [degF] [facility] Weight 2020-05-12 14:30:00 205 [lb_av] [facility] BMI (Body Mass Index) 2020-05-12 14:30:00 28.6 kg/m2 [facility] Procedures Procedure Date / Time Performed Performing Clinician Amrita neal DILATION OF RIGHT URETER WITH INTRALUMINAL DEVICE, ENDO 00:00:00 [facility] FLUOROSCOPY OF KIDNEY, URETER & BLADDER USING L OSM CO NTRAST 2019-11-04 00:00:00 [facility] X-ray of chest, two views 2019-11-03 00:00:00 ELIF CAMARILLO [facility] CT of abdomen and pelvis without contrast 2019-11-03 00:00:00 [facility] Plan of Care Planned Activity Planned Date Details Comments Source Instructions Gout [facility] Encounters Start Date/Time End Date/Time Encounter Type Admission Type Att[facility] Facility Care Department Encounter ID Source 2020-05-12 14:31:00 2020-05-12 17:09:00 Departed Emergency Room MARCO REYES [facility] [id number] [facility] 2019-11-05 07:54:00 2019-11-07 13:14:00 Discharged Inpatient 1 ELIF CAMARILLO [facility] [id number] [facility] Results Test Description Test Time Test Comments Results Result Comments Source FOOT 3 VIEW RT - HOPD 2020-05-12 15:13:00 [facility] [address] [address] Patient Name: JERRY ALLISON MR #: [id number] : 1950 Age/Sex: 69/M Req #: [id number] Adm Physician: Ordered by: MARCO REYES MD Report #: [id number] Location: COUNTS INCLUDE [facility] BEDS AT [facility] Room/Bed: Procedure: [id number] HOPD/FOOT 3 VIEW RT - HOPD Exam [...] 3:16 PM Dictated By: CHAVEZ CHUA MD [id number] Transcribed By: BECKIE on 05/12/201515 COPY TO: MARCO REYES MD Blood leukocytes automated count (number/volume) 2020-05-12 14:50:00 Test Item White Blood Count (test code = 6690-2) 8.44 4.8-10.8 [facility] erythrocytes automated count (number/volume)2020-05-12 14:50:00* Test Item Value Reference Range Interpretation Comments Red Blood Count (test code = 789-8) 4.54 4.3-5.7 [facility] IrvingBlood hemoglobin measurement (moles/volume)2020-05-12 14:50:00* Test Item Value Reference Range Interpretation Comments Hemoglobin (test code = 77195-6) 14.5 14.0-18.0 [facility] IrvingAutomated blood hematocrit (volume fraction)2020-05-12 14:50:00* Test Item Value Reference Range Interpretation Comments Hematocrit (test code = 4544-3) 41.8 38.2-49.6 [facility] IrvingAutomated erythrocyte mean corpuscular udypfr2565-80-02 14:50:00* Test Item Value Reference Range Interpretation Comments Mean Corpuscular Volume (test code = 787-2) 92.1 81-99 [facility] IrvingAutomated erythrocyte mean corpuscular hemoglobin (mass per erythrocyte)2020-05-12 14:50:00* Test Item Value Reference Range Interpretation Comments Mean Corpuscular Hemoglobin (test code = 785-6) 31.9 28-32 [facility] IrvingAutomated erythrocyte mean corpuscular hemoglobin concentration measurement (mass/volume)2020-05-12 14:50:00* Test Item Value Reference Range Interpretation Comments Mean Corpuscular Hemoglobin Concent (test code = 786-4) 34.7 31-35 [facility] IrvingRDW ObxEi-Lsz4476-00-29 14:50:00* Test Item Value Reference Range Interpretation Comments Red Cell Distribution Width (test code = 47470-6) 12.5 11.7 -14.4 [facility] IrvingAutomated blood platelet count (count/volume)2020-05-12 14:50:00* Test Item Value Reference Range Interpretation Comments Platelet Count (test code = 777-3) 136 140-360 [facility] IrvingAutomated blood segmented neutrophil count as percentage of total ulkigqrmdn9848-16-75 14:50:00* Test Item Value Reference Range Interpretation Comments Neutrophils (%) (Auto) (test code = 31708-8) 61.1 38.7-80.0 [facility] IrvingAutomated blood lymphocyte count as percentage ot total vxmleoklyg4458-31-25 14:50:00* Test Item Value Reference Range Interpretation Comments Lymphocytes (%) (Auto) (test code = 736-9) 25.5 18.0-39.1 [facility] IrvingAutomated blood monocyte count as percentage of total wamckpsbmd7317-86-76 14:50:00* Test Item Value Reference Range Interpretation Comments Monocytes (%) (Auto) (test code = 5905-5) 8.5 4.4-11.3 [facility] IrvingAutomated blood eosinophil count as percentage of total erwkgcxsjl4322-63-90 14:50:00* Test Item Value Reference Range Interpretation Comments Eosinophils (%) (Auto) (test code = 713-8) 3.8 0.0-6.0 [facility] IrvingAutomated blood basophil count as percentage of total rrbyrkhlwo2919-62-50 14:50:00* Test Item Value Reference Range Interpretation Comments Basophils (%) (Auto) (test code = 706-2) 0.6 0.0-1.0 [facility] IrvingFluoroscopic procedure less than one hour cwcigbor4961-87-02 14:50:00* Test Item Value Reference Range Interpretation Comments IM GRANULOCYTES % (test code = IM GRANULOCYTES %) 0.5 0.0- 1.0 [facility] IrvingAutomated blood neutrophil count 2020-05-12 14:50:00* Test Item Value Reference Range Interpretation Comments Neutrophils # (Auto) (test code = 751-8) 5.2 2.1-6.9 [facility] IrvingBlood lymphocytes count (number/volume) 2020-05-12 14:50:00* Test Item Value Reference Range Interpretation Comments Lymphocytes # (Auto) (test code = 72219-1) 2.2 1.0-3.2 [facility] IrvingBlood monocytes automated count (number/volume)2020-05-12 14:50:00* Test Item Value Reference Range Interpretation Comments Monocytes # (Auto) (test code = 742-7) 0.7 0.2-0.8 [facility] IrvingAutomated blood eosinophil count 2020-05-12 14:50:00* Test Item Value Reference Range Interpretation Comments Eosinophils # (Auto) (test code = 711-2) 0.3 0.0-0.4 [facility] IrvingAutomated blood basophil count (count/volume)2020-05-12 14:50:00* Test Item Value Reference Range Interpretation Comments Basophils # (Auto) (test code = 704-7) 0.1 0.0-0.1 [facility] IrvingFluoroscopic procedure less than one hour shquobfm2293-55-35 14:50:00* Test Item Value Reference Range Interpretation Comments Absolute Immature Granulocyte (auto (rafiq t code = Absolute Immature Granulocyte (auto) 0.04 0-0.1 [facility] uric acid measurement (mass/volume)2020-05-12 14:50:00* Test Item Value Reference Range Interpretation Comments Uric Acid (test code = 3084-1) 8.9 4.8-8.0 [facility] Nvxep6882-65-92 05:02:00* Test Item Value Reference Range Interpretation Comments Sodium Level (test code = 2951-2) 143 136-145 [facility] IrvingPotassium Ghdrk9966-04-89 05:02:00* Test Item Value Reference Range Interpretation Comments Potassium Level (test code = 2823-3) 3.6 3.5-5.1 [facility] IrvingChloride Eofrd1169-30-19 05:02:00* Test Item Value Reference Range Interpretation Comments Chloride Level (test code = 2075-0) 112 98-107 H [facility] IrvingCarbon Dioxide Wmnoj8414-39-75 05:02:00* Test Item Value Reference Range Interpretation Comments Carbon Dioxide Level (test code = 2028-9) 21 22-29 L [facility] IrvingAnion Zly0154-83-17 05:02:00* Test Item Value Reference Range Interpretation Comments Anion Gap (test code = 79097-7) 13.6 8-16 [facility] IrvingBlood Urea Vyullaxt9237-35-55 05:02:00* Test Item Value Reference Range Interpretation Comments Blood Urea Nitrogen (test code = 3094-0) 15 7-26 [facility] IrvingCreatinine2020-01-24 05:02:00* Test Item Value Reference Range Interpretation Comments Creatinine (test code = 2160-0) 1.28 0.72-1.25 H [facility] IrvingBUN/Creatinine Qguyu6995-22-61 05:02:00* Test Item Value Reference Range Interpretation Comments BUN/Creatinine Ratio (test code = 3097-3) 12 - [facility] IrvingEstimat Glomerular Filtration Rate 2019-11-07 05:02:00* Test Item Value Reference Range Interpretation Comments Estimat Glomerular Filtration Rate (test code = 792808929) 56 >60 L Ranges were taken from the National Kidney Disease Education Program and the [facility] Kidney Foundation literature.Reference ranges:60 or greater: Jamefv23-43 ( for 3 consecutive months): Chronic kidney disease 15 or less: Kidney failureBaylor Scott & White Medical Center – IrvingGlucose Rdapy0841-98-70 05:02:00* Test Item Value Reference Range Interpretation Comments Glucose Level (test code = YQX7800) 110 74-118 [facility] IrvingCalcium Szuzg2445-70-55 05:02:00* Test Item Value Reference Range Interpretation Comments Calcium Level (test code = 55537-9) 8.6 8.4-10.2 [facility] IrvingWhite Blood Epmuk4439-73-03 04:44:00* Test Item Value Reference Range Interpretation Comments White Blood Count (test code = 6690-2) 7.69 4.8-10.8 [facility] IrvingRed Blood Acmpw2661-60-70 04:44:00* Test Item Value Reference Range Interpretation Comments Red Blood Count (test code = 789-8) 3.85 4.3-5.7 L [facility] IrvingHemoglobin2020-01-24 04:44:00* Test Item Value Reference Range Interpretation Comments Hemoglobin (test code = 72935-3) 12.7 14.0-18.0 L [facility] IrvingHematocrit2020-01-24 04:44:00* Test Item Value Reference Range Interpretation Comments Hematocrit (test code = 4544-3) 36.4 38.2-49.6 L [facility] IrvingMean Corpuscular Ksrgmr6794-69-72 04:44:00* Test Item Value Reference Range Interpretation Comments Mean Corpuscular Volume (test code = 787-2) 94.5 81-99 [facility] IrvingMean Corpuscular Wjayitdijo1367-48-11 04:44:00* Test Item Value Reference Range Interpretation Comments Mean Corpuscular Hemoglobin (test code = 785-6) 33.0 28-32 H [facility] IrvingMean Corpuscular Hemoglobin Concent 2019-11-07 04:44:00* Test Item Value Reference Range Interpretation Comments Mean Corpuscular Hemoglobin Concent (test code = 786-4) 34.9 31-35 [facility] IrvingRed Cell Distribution Gwwcb8281-65-89 04:44:00* Test Item Value Reference Range Interpretation Comments Red Cell Distribution Width (test code = 43860-9) 13.2 11.7 -14.4 [facility] IrvingPlatelet Wpktm7942-34-26 04:44:00* Test Item Value Reference Range Interpretation Comments Platelet Count (test code = 777-3) 121 140-360 L [facility] IrvingNeutrophils (%) (Auto)2019-11-07 04:44:00 * Test Item Value Reference Range Interpretation Comments Neutrophils (%) (Auto) (test code = 30644-3) 54.4 38.7-80.0 [facility] IrvingLymphocytes (%) (Auto)2019-11-07 04:44:00 * Test Item Value Reference Range Interpretation Comments Lymphocytes (%) (Auto) (test code = 736-9) 27.7 18.0-39.1 [facility] IrvingMonocytes (%) (Auto)2019-11-07 04:44:00* Test Item Value Reference Range Interpretation Comments Monocytes (%) (Auto) (test code = 5905-5) 10.1 4.4-11.3 [facility] IrvingEosinophils (%) (Auto)2019-11-07 04:44:00 * Test Item Value Reference Range Interpretation Comments Eosinophils (%) (Auto) (test code = 713-8) 3.9 0.0-6.0 [facility] IrvingBasophils (%) (Auto)2019-11-07 04:44:00* Test Item Value Reference Range Interpretation Comments Basophils (%) (Auto) (test code = 706-2) 0.8 0.0-1.0 [facility] IrvingIM GRANULOCYTES %2019-11-07 04:44:00* Test Item Value Reference Range Interpretation Comments IM GRANULOCYTES % (test code = IM GRANULOCYTES %) 3.1 0.0- 1.0 H [facility] IrvingNeutrophils # (Auto)2019-11-07 04:44:00* Test Item Value Reference Range Interpretation Comments Neutrophils # (Auto) (test code = 751-8) 4.2 2.1-6.9 [facility] IrvingLymphocytes # (Auto)2019-11-07 04:44:00* Test Item Value Reference Range Interpretation Comments Lymphocytes # (Auto) (test code = 95066-4) 2.1 1.0-3.2 [facility] IrvingMonocytes # (Auto)2019-11-07 04:44:00* Test Item Value Reference Range Interpretation Comments Monocytes # (Auto) (test code = 742-7) 0.8 0.2-0.8 [facility] IrvingEosinophils # (Auto)2019-11-07 04:44:00* Test Item Value Reference Range Interpretation Comments Eosinophils # (Auto) (test code = 711-2) 0.3 0.0-0.4 [facility] IrvingBasophils # (Auto)2019-11-07 04:44:00* Test Item Value Reference Range Interpretation Comments Basophils # (Auto) (test code = 704-7) 0.1 0.0-0.1 [facility] IrvingAbsolute Immature Granulocyte (auto 2019-11-07 04:44:00* Test Item Value Reference Range Interpretation Comments Absolute Immature Granulocyte (auto (rafiq t code = Absolute Immature Granulocyte (auto) 0.24 0-0.1 H [facility] Centererum or plasma sodium measurement (moles/volume)2019-11-07 03:00:00* Test Item Value Reference Range Interpretation Comments Sodium Level (test code = 2951-2) 143 136-145 [facility] Centererum or plasma potassium measurement (moles/volume)2019-11-07 03:00:00* Test Item Value Reference Range Interpretation Comments Potassium Level (test code = 2823-3) 3.6 3.5-5.1 [facility] Centererum or plasma chloride measurement (moles/volume)2019-11-07 03:00:00* Test Item Value Reference Range Interpretation Comments Chloride Level (test code = 2075-0) 112 98-107 [facility] Centererum or plasma carbon dioxide, total measurement (moles/volume)2019-11-07 03:00:00* Test Item Value Reference Range Interpretation Comments Carbon Dioxide Level (test code = 2028-9) 21 22-29 [facility] Centererum or plasma anion dzp1657-50-12 03:00:00* Test Item Value Reference Range Interpretation Comments Anion Gap (test code = 44083-7) 13.6 8-16 [facility]ererum or plasma urea nitrogen measurement (mass/volume)2019-11-07 03:00:00* Test Item Value Reference Range Interpretation Comments Blood Urea Nitrogen (test code = 3094-0) 15 7-26 [facility]ererum or plasma creatinine measurement (mass/volume)2019-11-07 03:00:00* Test Item Value Reference Range Interpretation Comments Creatinine (test code = 2160-0) 1.28 0.72-1.25 [facility] Centererum or plasma urea nitrogen/creatinine mass gucfk5190-81-80 03:00:00* Test Item Value Reference Range Interpretation Comments BUN/Creatinine Ratio (test code = 3097-3) 12 6-25 [facility] IrvingEstimated glomerular filtration rate (GFR) qztkemsuefwzt7694-39-53 03:00:00* Test Item Value Reference Range Interpretation Comments Estimat Glomerular Filtration Rate (test code = 547007132) 56 >60 Ranges were taken from the National Kidney Disease Education Program and the [facility] Kidney Foundation literature.Reference ranges:60 or greater: Muyalw73-86 ( for 3 consecutive months): Chronic kidney disease 15 or less: Kidney failureCHI Faith Community HospitalGlucose yjyyhzaxdsr7904-41-57 03:00:00* Test Item Value Reference Range Interpretation Comments Glucose Level (test code = HZM4097) 110 74-118 [facility]ererum or plasma calcium measurement (mass/volume)2019-11-07 03:00:00* Test Item Value Reference Range Interpretation Comments Calcium Level (test code = 73502-2) 8.6 8.4-10.2 [facility] IrvingParathyroid Rkwkwne0004-25-02 08:17:00* Test Item Value Reference Range Interpretation Comments Parathyroid Hormone (test code = 2731-8) 30 15-65 [facility] IrvingCalcium (Send out)2019-11-06 08:17:00* Test Item Value Reference Range Interpretation Comments Calcium (Send out) (test code = 35205-1) 8.9 8.6-10.2 [facility] IrvingParathyroid Hormone Interpretation 2019-11-06 08:17:00* Test Item Value Reference Range Interpretation Comments Parathyroid Hormone Interpretation (test code = Parathyroid Hormone Interpretation) Comment . Interpretation Intact PTH Calcium (pg/mL) (mg/dL)Normal 15 - 65 8.6 - 10.2Pr imary Hyperparathyroidism >65 >10.2Secondary Hyperparathyroidism >65 <10.2Non-Parathyroid Hypercalcemia <65 >10.2Hypoparathyroidism <15 < 8.6Non- Parathyroid Hypocalcemia 15 - 65 < 8.6Performed at: - [facility] [id number] Director: Daniel Alvarado MD, Phone: [phone] at: [facility] [address]Co[address] [place], [place] [id number] Director: Stephanie Back MD, Phone: [phone] Scott & [facility] Center – IrvingUric Fxhf8219-01-62 06:23:00* Test Item Value Reference Range Interpretation Comments Uric Acid (test code = 3084-1) 8.9 4.8-8.0 H [facility] IrvingMagnesium Olatc4280-41-59 06:08:00* Test Item Value Reference Range Interpretation Comments Magnesium Level (test code = 15124-3) 1.6 1.3-2.1 [facility]ererum or plasma magnesium measurement (mass/volume)2019-11-05 04:20:00* Test Item Value Reference Range Interpretation Comments Magnesium Level (test code = 22168-1) 1.6 1.3-2.1 [facility] Centererum or plasma intact pararthyroid hormone measurement (mass/volume)2019-11-05 04:20:00* Test Item Value Reference Range Interpretation Comments Parathyroid Hormone (test code = 2731-8) 30 15-65 [facility]ererum or plasma calcium measurement (mass/volume)2019-11-05 04:20:00* Test Item Value Reference Range Interpretation Comments Calcium (Send out) (test code = 00197-4) 8.9 8.6-10.2 [facility] IrvingFluoroscopic procedure less than one hour bqxwbkbz0533-38-67 04:20:00* Test Item Value Reference Range Interpretation Comments Parathyroid Hormone Interpretation (test code = Parathyroid Hormone Interpretation) Comment . Interpretation Intact PTH Calcium (pg/mL) (mg/dL)Normal 15 - 65 8.6 - 10.2Pr imary Hyperparathyroidism >65 >10.2Secondary Hyperparathyroidism >65 <10.2Non-Parathyroid Hypercalcemia <65 >10.2Hypoparathyroidism <15 < 8.6Non- Parathyroid Hypocalcemia 15 - 65 < 8.6Performed at: [facility] [id number] Director: Daniel Alvarado MD, Phone: [phone] at: [facility] - [facility] [address] [id number] Director: Stephanie Back MD, Phone: [phone] Scott & White Medical Center – IrvingHemoglobin A1c Vhgazom3878-73-08 08:56:00* Test Item Value Reference Range Interpretation Comments Hemoglobin A1c Percent (test code = Hemoglobin A1c Percent) 5.5 4.0-7.0 [facility] IrvingB-Type Natriuretic Wznkpxk4211-44-68 08:11:00* Test Item Value Reference Range Interpretation Comments B-Type Natriuretic Peptide (test code = 62789-6) 169.5 0-100 H [facility] IrvingUrine LZI7704-53-44 07:43:00* Test Item Value Reference Range Interpretation Comments Urine WBC (test code = 5821-4) 0-5 0-5 [facility] IrvingUrine EKF1811-67-15 07:43:00* Test Item Value Reference Range Interpretation Comments Urine RBC (test code = 04196-7) >50 0-5 H [facility] IrvingUrine Wtbfpsek9102-31-35 07:43:00* Test Item Value Reference Range Interpretation Comments Urine Bacteria (test code = 61108-7) MODERATE NONE H [facility] IrvingUrine Epithelial Cqewv6224-18-61 07:43:00 * Test Item Value Reference Range Interpretation Comments Urine Epithelial Cells (test code = 88770-8) FEW NONE [facility] IrvingUrine Amorphous Yqrayygm2067-83-56 07:43:00* Test Item Value Reference Range Interpretation Comments Urine Amorphous Sediment (test code = 8246-1) MODERATE FEW H [facility] IrvingUrine Pftaq0148-08-47 07:38:00* Test Item Value Reference Range Interpretation Comments Urine Color (test code = 5778-6) BROWN YELLOW H [facility] IrvingUrine Htmkgxv9889-34-32 07:38:00* Test Item Value Reference Range Interpretation Comments Urine Clarity (test code = 55483-7) CLOUDY CLEAR H [facility] IrvingUrine Specific Rlowcyr5864-84-01 07:38:00 * Test Item Value Reference Range Interpretation Comments Urine Specific Mccleary (test code = 5811-5) 1.030 1.010-1.02 5 H [facility] IrvingUrine fI9257-71-88 07:38:00* Test Item Value Reference Range Interpretation Comments Urine pH (test code = 53438-5) 5.5 5-7 [facility] Leukocyte Zapdhrpi1733-75-04 07:38:00* Test Item Value Reference Range Interpretation Comments Urine Leukocyte Esterase (test code = 5799-2) NEGATIVE NEGATIVE [facility] Bvgbvyz5287-40-84 07:38:00* Test Item Value Reference Range Interpretation Comments Urine Nitrite (test code = 93292-2) NEGATIVE NEGATIVE [facility] Wcgxdcd2246-21-36 07:38:00* Test Item Value Reference Range Interpretation Comments Urine Protein (test code = 5804-0) 3+ NEGATIVE H [facility] Glucose (UA)2019-11-04 07:38:00* Test Item Value Reference Range Interpretation Comments Urine Glucose (UA) (test code = 2349-9) NEGATIVE NEGATIVE [facility] Xgewxpq0015-12-99 07:38:00* Test Item Value Reference Range Interpretation Comments Urine Ketones (test code = 21853-4) NEGATIVE NEGATIVE [facility] Tvnbjzwtswhr1495-27-09 07:38:00* Test Item Value Reference Range Interpretation Comments Urine Urobilinogen (test code = 60572-9) 0.2 0.2-1 [facility] Mdsqknupp2864-17-34 07:38:00* Test Item Value Reference Range Interpretation Comments Urine Bilirubin (test code = 1978-6) SMALL NEGATIVE Confirmatory test currently unavailable. False positive results may occur.[facility] [id number] 07:38:00* Test Item Value Reference Range Interpretation Comments Urine Blood (test code = 75833-0) 3+ NEGATIVE [facility] Opiates [id number] 07:36:00* Test Item Value Reference Range Interpretation Comments Urine Opiates Screen (test code = 78094-3) POSITIVE NEGATIVE H This test provides only a screen. Positive results should be repeated by a confi rmatory test.[facility] Barbiturates Screen 2019-11-04 07:36:00* Test Item Value Reference Range Interpretation Comments Urine Barbiturates Screen (test code = 864029555) NEGATIVE NEGA TIVE [facility] Irving[facility] Phencyclidine [id number] 07:36:00* Test Item Value Reference Range Interpretation Comments Urine Phencyclidine Screen (test code = 02332-6) NEGATIVE NEGAT RUBY [facility] Amphetamines Grvozc0751-74-61 07:36:00* Test Item Value Reference Range Interpretation Comments Urine Amphetamines Screen (test code = 67921-2) NEGATIVE NEGATI VE [facility] Irving[facility] Methamphetamines Wimjbs7456-45-96 07:36:00* Test Item Value Reference Range Interpretation Comments Urine Methamphetamines Screen (test code = Urine Metha mphetamines Screen) NEGATIVE NEGATIVE [facility] Benzodiazepines Krxwsh1991-91-27 07:36:00* Test Item Value Reference Range Interpretation Comments Urine Benzodiazepines Screen (test code = 91021-7) NEGATIVE NEG ATIVE [facility] Irving[facility] Cocaine Jetoyg6288-31-13 07:36:00* Test Item Value Reference Range Interpretation Comments Urine Cocaine Screen (test code = 3398-5) NEGATIVE NEGATIVE [facility] Cannabinoids Zxpbcp2295-02-97 07:36:00* Test Item Value Reference Range Interpretation Comments Urine Cannabinoids Screen (test code = 48222-7) NEGATIVE NEGATI VE THESE RESULTS ARE FOR MEDICAL TREATMENT ONLYTHIS REPORT CONTAINS UNCONFIR MED SCREENING RESULTS*POSITIVE RESULTS WILL BE CONFIRMED BY REFERENCE LAB UPON R EQUEST CUT-OFFDRUG CLASS CONCENTRATION ng/mLAmphetamines 1000Methamphetamines 1000Cocaine 300Opiate 300Phencyc lidine 25Cannabinoid 50Barbiturates 300Benzodiazepine 300Methadone 300[facility] Qiezji8994-44-31 07:36:00* Test Item Value Reference Range Interpretation Comments Urine Methadone Screen (test code = 81085-5) NEGATIVE NEGATIVE THESE RESULTS ARE FOR MEDICAL TREATMENT ONLYTHIS REPORT CONTAINS UNCONFIR MED SCREENING RESULTS*POSITIVE RESULTS WILL BE CONFIRMED BY REFERENCE LAB UPON R EQUEST CUT-OFFDRUG CLASS CONCENTRATION ng/mLAmphetamines 1000Methamphetamines 1000Cocaine Metabolite 300Opiate 300Phencyc lidine 25Cannabinoid 50Barbiturates 300Benzodiazepine 300Methadone 300[facility] HospitalFluor[facility] procedure less than one hour mbfbvzwg9029-22-90 06:00:00* Test Item Value Reference Range Interpretation Comments Hemoglobin A1c Percent (test code = Hemoglobin A1c Percent) 5.5 4.0-7.0 [facility] IrvingBNP Kjp-fRrs0800-88-21 06:00:00* Test Item Value Reference Range Interpretation Comments B-Type Natriuretic Peptide (test code = 89226-5) 169.5 0-100 [facility] IrvingUrine color isbdtnrkdibfo3810-23-47 05:34:00* Test Item Value Reference Range Interpretation Comments Urine Color (test code = 5778-6) BROWN YELLOW [facility] IrvingU[facility] lhvjwtv0061-65-80 05:34:00* Test Item Value Reference Range Interpretation Comments Urine Clarity (test code = 22881-4) CLOUDY CLEAR [facility] by Test strip 2019-11-04 05:34:00* Test Item Value Reference Range Interpretation Comments Urine Specific Mccleary (test code = 5811-5) 1.030 1.010-1.02 5 [facility] Irving[facility] pH measurement by automated test zjjng1245-07-77 05:34:00* Test Item Value Reference Range Interpretation Comments Urine pH (test code = 64127-5) 5.5 5-7 [facility] Irving[facility] leukocyte esterase detection by tfbxsbtc9352-88-27 05:34:00* Test Item Value Reference Range Interpretation Comments Urine Leukocyte Esterase (test code = 5799-2) NEGATIVE NEGATIVE [facility] IrvingUrine nitrite icnzdqrla3125-38-08 05:34:00* Test Item Value Reference Range Interpretation Comments Urine Nitrite (test code = 09307-4) NEGATIVE NEGATIVE [facility] Irving[facility] protein measurement by test strip (mass/volume)2019-11-04 05:34:00* Test Item Value Reference Range Interpretation Comments Urine Protein (test code = 5804-0) 3+ NEGATIVE [facility] IrvingU[facility] glucose gwasxdpet6634-23-79 05:34:00* Test Item Value Reference Range Interpretation Comments Urine Glucose (UA) (test code = 2349-9) NEGATIVE NEGATIVE [facility] IrvingUrine ketones detection by automated test jkjmo3739-75-27 05:34:00* Test Item Value Reference Range Interpretation Comments Urine Ketones (test code = 40351-8) NEGATIVE NEGATIVE [facility] IrvingUrine opiates screening [id number] 05:34:00* Test Item Value Reference Range Interpretation Comments Urine Opiates Screen (test code = 84033-3) POSITIVE NEGATIVE This test provides only a screen. Positive results should be repeated by a confi rmatory test.[facility] IrvingBarbiturates screen, urine 2019-11-04 05:34:00* Test Item Value Reference Range Interpretation Comments Urine Barbiturates Screen (test code = 595135717) NEGATIVE NEGA TIVE [facility] IrvingUrine phencyclidine detection by screening [id number] 05:34:00* Test Item Value Reference Range Interpretation Comments Urine Phencyclidine Screen (test code = 94436-4) NEGATIVE NEGAT RUBY [facility] IrvingUrine amphetamines detection by screen method > 1000 ng/wG0608-47-65 05:34:00* Test Item Value Reference Range Interpretation Comments Urine Amphetamines Screen (test code = 68818-5) NEGATIVE NEGATI VE [facility] IrvingFluoroscopic procedure less than one hour miciawzl9421-46-78 05:34:00* Test Item Value Reference Range Interpretation Comments Urine Methamphetamines Screen (test code = Urine Metha mphetamines Screen) NEGATIVE NEGATIVE [facility] IrvingUrine benzodiazepines detection by screening xncgpj1630-74-54 05:34:00* Test Item Value Reference Range Interpretation Comments Urine Benzodiazepines Screen (test code = 99926-1) NEGATIVE NEG ATIVE [facility] IrvingUrine cocaine measurement (mass/volume) 2019-11-04 05:34:00* Test Item Value Reference Range Interpretation Comments Urine Cocaine Screen (test code = 3398-5) NEGATIVE NEGATIVE [facility] IrvingUrine cannabinoids detection by screening avobud4405-87-48 05:34:00* Test Item Value Reference Range Interpretation Comments Urine Cannabinoids Screen (test code = 72528-6) NEGATIVE NEGATI VE THESE RESULTS ARE FOR MEDICAL TREATMENT ONLYTHIS REPORT CONTAINS UNCONFIR MED SCREENING RESULTS*POSITIVE RESULTS WILL BE CONFIRMED BY REFERENCE LAB UPON R EQUEST CUT-OFFDRUG CLASS CONCENTRATION ng/mLAmphetamines 1000Methamphetamines 1000Cocaine 300Opiate 300Phencyc lidine 25Cannabinoid 50Barbiturates 300Benzodiazepine 300Methadone 300[facility] HospitalUrine methadone isnedf3538-20-05 05:34:00* Test Item Value Reference Range Interpretation Comments Urine Methadone Screen (test code = 80733-3) NEGATIVE NEGATIVE THESE RESULTS ARE FOR MEDICAL TREATMENT ONLYTHIS REPORT CONTAINS UNCONFIR MED SCREENING RESULTS*POSITIVE RESULTS WILL BE CONFIRMED BY REFERENCE LAB UPON R EQUEST CUT-OFFDRUG CLASS CONCENTRATION ng/mLAmphetamines 1000Methamphetamines 1000Cocaine Metabolite 300Opiate 300Phencyc lidine 25Cannabinoid 50Barbiturates 300Benzodiazepine 300Methadone 300[facility] IrvingUrine urobilinogen measurement by test strip (mass/volume)2019-11-04 05:34:00* Test Item Value Reference Range Interpretation Comments Urine Urobilinogen (test code = 76864-8) 0.2 0.2-1 [facility] IrvingU[facility] total bilirubin measurement (mass/volume)2019-11-04 05:34:00* Test Item Value Reference Range Interpretation Comments Urine Bilirubin (test code = 1978-6) SMALL NEGATIVE Confirmatory test currently unavailable. False positive results may occur.[facility] IrvingUrine erythrocytes atpqtudyq6670-92-27 05:34:00* Test Item Value Reference Range Interpretation Comments Urine Blood (test code = 19675-0) 3+ NEGATIVE [facility] IrvingAutomated urine sediment leukocyte count by microscopy (number/high power field)2019-11-04 05:34:00* Test Item Value Reference Range Interpretation Comments Urine WBC (test code = 5821-4) 0-5 0-5 [facility] IrvingErythrocytes detection in urine sediment by light oaosidxvem3346-92-64 05:34:00* Test Item Value Reference Range Interpretation Comments Urine RBC (test code = 31969-8) >50 0-5 [facility] IrvingBacteria detection in urine sediment by light cpzomokjoz1221-64-19 05:34:00* Test Item Value Reference Range Interpretation Comments Urine Bacteria (test code = 97829-3) MODERATE NONE [facility] IrvingEpithelial cells detection in urine sediment by light aoivrmkgke0440-88-62 05:34:00* Test Item Value Reference Range Interpretation Comments Urine Epithelial Cells (test code = 34108-6) FEW NONE [facility] IrvingAmorphous sediment detection in urine sediment by light herxjljjfm5641-53-92 05:34:00* Test Item Value Reference Range Interpretation Comments Urine Amorphous Sediment (test code = 8246-1) MODERATE FEW [facility] IrvingCHEST 2 [id number] 21:05:00 [facility] [address] [place] [address] Patient Name: JERRY ALLISON MR #: [id number] : 1950 Age/Sex: 69/M Req #: [id number] Adm Physician: Ordered by: ELIF CAMARILLO DO Report #: [id number] Location: [facility]/Bed: Procedure: [id number] DX/CHES T 2 VIEWS Exam Date: 11/03/19 Exam Time: 1914 REPORT STATUS: Signed EXAMINATION: CH EST 2 VIEWS INDICATION: Short of breath [...] COPY TO: ELIF CAMARILLO DO CT ABDOMEN/PELVIS [id number] 20:36:00 [place] [address] Patient Name: JERRY ALLISON MR #: [id number] : 1950 Age/Sex: 69/M Req #: [id number] Adm Physician: Ordered by: MARCO REYES MD Report #: [id number] Location: ER Room/Bed: Procedure: [id number] CT/C T ABDOMEN/PELVIS WO Exam Date: 11/03/19 Exam Time: 5 REPORT STATUS: Signed EXAM: CT Abdomen [...] 11/03/192043 COPY TO: MARCO VILLELA MD Total Vywztkpho6085-70-79 19:19:00* Test Item Value Reference Range Interpretation Comments Total Bilirubin (test code = 1975-2) 1.0 0.2-1.2 [facility] IrvingAspartate Amino Transf (AST/SGOT) 2019-11-03 19:19:00* Test Item Value Reference Range Interpretation Comments Aspartate Amino Transf (AST/SGOT) (test code = Aspartate Amino Transf (AST/SGOT)) 30 5-34 [facility] IrvingAlanine Aminotransferase (ALT/SGPT) 2019-11-03 19:19:00* Test Item Value Reference Range Interpretation Comments Alanine Aminotransferase (ALT/SGPT) (test code = 1742-6) 36 0-55 [facility] IrvingTotal Psxouua1359-77-49 19:19:00* Test Item Value Reference Range Interpretation Comments Total Protein (test code = 2885-2) 6.6 6.5-8.1 [facility] IrvingAlbumin2020-01-20 19:19:00* Test Item Value Reference Range Interpretation Comments Albumin (test code = 1751-7) 4.0 3.5-5.0 [facility] IrvingGlobulin2020-01-20 19:19:00* Test Item Value Reference Range Interpretation Comments Globulin (test code = 01901-3) 2.6 2.3-3.5 [facility] IrvingAlbumin/Globulin Piusz7960-16-31 19:19:00 * Test Item Value Reference Range Interpretation Comments Albumin/Globulin Ratio (test code = 1759-0) 1.5 0.8-2.0 [facility] IrvingAlkaline Ddsvtofbpgf0378-75-83 19:19:00* Test Item Value Reference Range Interpretation Comments Alkaline Phosphatase (test code = 6768-6) 80 40-150 [facility] IrvingLipase2020-01-20 19:19:00* Test Item Value Reference Range Interpretation Comments Lipase (test code = 3040-3) 57 8-78 [facility]ererum or plasma total bilirubin measurement (mass/volume)2019-11-03 17:49:00* Test Item Value Reference Range Interpretation Comments Total Bilirubin (test code = 1975-2) 1.0 0.2-1.2 [facility] IrvingFluoroscopic procedure less than one hour mvrqskrr9098-57-17 17:49:00* Test Item Value Reference Range Interpretation Comments Aspartate Amino Transf (AST/SGOT) (test code = Aspartate Amino Transf (AST/SGOT)) 30 5-34 [facility]ererum or plasma alanine aminotransferase measurement (enzymatic activity/volume)2019-11-03 17:49:00* Test Item Value Reference Range Interpretation Comments Alanine Aminotransferase (ALT/SGPT) (test code = 1742-6) 36 0-55 [facility]ererum or plasma protein measurement (mass/volume)2019-11-03 17:49:00* Test Item Value Reference Range Interpretation Comments Total Protein (test code = 2885-2) 6.6 6.5-8.1 [facility]ererum or plasma albumin measurement (mass/volume)2019-11-03 17:49:00* Test Item Value Reference Range Interpretation Comments Albumin (test code = 1751-7) 4.0 3.5-5.0 [facility] IrvingPlasma globulin measurement (mass/volume) 2019-11-03 17:49:00* Test Item Value Reference Range Interpretation Comments Globulin (test code = 94436-3) 2.6 2.3-3.5 [facility]ererum or plasma albumin/globulin mass tgueb2997-90-46 17:49:00* Test Item Value Reference Range Interpretation Comments Albumin/Globulin Ratio (test code = 1759-0) 1.5 0.8-2.0 [facility]ererum or plasma alkaline phosphatase measurement (enzymatic activity/volume)2019-11-03 17:49:00* Test Item Value Reference Range Interpretation Comments Alkaline Phosphatase (test code = 6768-6) 80 40-150 [facility]ererum or plasma lipase measurement (enzymatic activity/volume)2019-11-03 17:49:00* Test Item Value Reference Range Interpretation Comments Lipase (test code = 3040-3) 57 8-78 [facility]
[2020-06-30] MEDS ORDERED: DEXAMETHASONE SOD PHOS INJ 4 MG/ML VIAL ONE (17:11)
[2020-06-30] MEDS ORDERED: KETOROLAC TROMETHAMINE 30 MG/ML VIAL ONE (17:11)
[2020-06-30] MEDS ORDERED: HYDROCODONE/APAP 5MG-325MG TAB ONE (17:12)
--- NOTE | 2020-06-30 17:41 | Emergency Department Note ---
History of Present Illnes History of Present Illness Chief Complaint: General Medicine Complaints History of Present Illness This is a 69 year old male . Historian: Patient Arrival Mode: Car Onset (how long ago): day(s) Location: LEFT LEG Quality: SHARP Radiation: Denies non-radiation, Denies back, Denies neck, Denies extremity, Denies abdomen, Denies periumbilical, Denies flank, Denies proximal, Denies distal, Denies other Severity: moderate Onset quality: gradual Duration (how long): day(s) (2) Timing of current episode: constant Progression: waxing and waning Chronicity: recurrent Context: Denies recent illness, Denies recent surgery, Denies recent immobilization, Denies recent travel, Denies trauma/injury, Denies new medications, Denies hx of DVT/PE, Denies non-compliance w/ medications, Denies other Relieving factors: none, cold therapy Exacerbating factors: none Associated symptoms: Denies denies other symptoms, Denies confusion, Denies chest pain, Denies cough, Denies diaphoresis, Denies fever/chills, Denies headaches, Denies loss of appetite, Denies malaise, Denies nausea/vomiting, Denies rash, Denies seizure, Denies shortness of breath, Denies syncope, Denies weakness, Denies other Treatments prior to arrival: none Past Medical/Family History Physician Review I have reviewed the patient's past medical and family history. Any updates have been documented here. Past Medical History Recent Fever: No Clinical Suspicion of Infectio: No New/Unexplained Change in Ment: No Past Medical History: Hypertension, Hyperlipedemia Past Surgical History: Cholecysctectomy, Colon Resection Other Surgery: 18" COLON REMOVED AFTER 2 DOZEN RAW OYSTERS AND LEAD TO COLON SX HAD COLOSTOMY AND NOW GONE LFT HAND LACERATION REPAIR FROM PLATE GLASS CUT Heart cath with ballooning KIDNEY STONES Social History Smoking Cessation: Unknown if ever smoked Counseling Performed: No Alcohol Use: None Any Illegal Drug Use: No Other Any Pre-Existing Lines (PICC,: No Review of Systems Review of Systems Constitutional: Reports no symptoms EENTM: Reports no symptoms Cardiovascular: Reports no symptoms Respiratory: Reports no symptoms Gastrointestinal: Reports no symptoms Genitourinary: Reports no symptoms Musculoskeletal: Reports as per HPI Integumentary: Reports no symptoms Neurological: Reports no symptoms Psychological: Reports no symptoms Endocrine: Reports no symptoms Hematological/Lymphatic: Reports no symptoms Physical Exam Related Data Allergies: Coded Allergies: fentanyl (Verified Adverse Reaction, Intermediate, hallucinations, 11/04/19) Triage Vital Signs Vital Signs Date Time Temp Pulse Resp B/P (MAP) Pulse Ox O2 Delivery O2 Flow Rate FiO2 06/30/20 17:02 99.9 92 20 118/81 96 Room Air Vital signs reviewed: Yes Physical Exam CONSTITUTIONAL Constitutional: Present well-developed, Present well-nourished HENT HENT: Present normocephalic, Present atraumatic, Present oropharynx clear/moist, Present nose normal HENT L/R: Present left ext ear normal, Present right ext ear normal EYES Eyes: Reports PERRL, Reports conjunctivae normal NECK Neck: Present ROM normal PULMONARY Pulmonary: Present effort normal, Present breath sounds normal CARDIOVASCULAR Cardiovascular: Present regular rhythm, Present heart sounds normal, Present capillary refill normal, Present normal rate GASTROINTESTINAL Abdominal: Present soft, Present nontender, Present bowel sounds normal GENITOURINARY Genitourinary: Present exam deferred SKIN Skin: Present warm, Present dry MUSCULOSKELETAL Musculoskeletal: Present ROM normal, Present other (LEFT FOOT TENDERNESS) NEUROLOGICAL Neurological: Present alert, Present oriented x 3, Present no gross motor or sensory deficits PSYCHOLOGICAL Psychological: Present mood/affect normal, Present judgement normal Assessment & Plan Medical Decision Making MDM GOUT CELLULITIS Reassessment Reassessment BETTER Assessment & Plan Final Impression: (1) Left foot pain (2) Acute gout Depart Disposition: HOME, SELF-CARE Last Vital Signs Date Time Temp Pulse Resp B/P (MAP) Pulse Ox O2 Delivery O2 Flow Rate FiO2 06/30/20 17:02 99.9 92 20 118/81 96 Room Air Home Meds Reported Medications [Erythromycin Ointmt] No Conflict Check, OU PRN 11/04/19 Isosorbide Mononitrate (ISOSORBIDE MONONITRATE ER) 30 Mg Tab.er.24h, 30 MG PO DAILY, #30 TAB 11/04/19 Clopidogrel Bisulfate (CLOPIDOGREL) 75 Mg Tablet, 75 MG PO DAILY, #30 TAB 11/04/19 Rosuvastatin Calcium (Rosuvastatin Calcium) 10 Mg Tablet, 10 MG PO DAILY 11/04/19 Atenolol (ATENOLOL) 50 Mg Tablet, 100 MG PO DAILY 1/21/20 Medications in the ED Acetaminophen/ Hydrocodone Bitart 1 ea ONCE ONCE PO Last administered on at 17:09; Admin Dose 1 EA; Start 06/30/20 at 16:45; Stop 06/30/20 at 16:46; Status DC Ketorolac Tromethamine 30 mg ONCE STAT IM Last administered on 06/30/20at 17:09; Admin Dose 30 MG; Start 06/30/20 at 16:39; Stop 06/30/20 at 16:44; Status DC Dexamethasone Sodium Phosphate 10 mg ONCE ONCE IM Last administered on 06/30/20at 17:09; Admin Dose 10 MG; Start 06/30/20 at 16:45; Stop 06/30/20 at 16:46; Status DC Dexamethasone Sodium Phosphate 12 mg STK-MED ONCE .ROUTE ; Start 06/30/20 at 17:11; Stop 06/30/20 at 17:05; Status DC Ketorolac Tromethamine 30 mg STK-MED ONCE .ROUTE ; Start 06/30/20 at 17:11; Stop 06/30/20 at 17:05; Status DC Acetaminophen/ Hydrocodone Bitart 1 ea STK-MED ONCE .ROUTE ; Start 06/30/20 at 17:12; Stop 06/30/20 at 17:05; Status DC MARCO REYES MD Jun 30, 2020 17:41
== END 2020-06-30 17:43 | disposition home or self-care (01) ==
LOC: FSED 17:07
DX: M79.672 Pain in left foot (principal); M10.9 Gout, unspecified; I10 Essential (primary) hypertension; E78.5 Hyperlipidemia, unspecified
CPT/HCPCS: 99283; J1100; J1885

== ENCOUNTER 2021-03-17 10:19 | Emergency (ER) | payer MEDICARE ==
[~2021-03-17] VITALS: Ht 180.3 cm; Wt 95.3 kg
[2021-03-17] MEDS ORDERED: IBUPROFEN IB200 MG PO (10:32)
[2021-03-17] MEDS ORDERED: TYLENOL # 31 EA PO (10:32)
== END 2021-03-17 11:15 | disposition home or self-care (01) ==
LOC: FSED 10:23
DX: M25.511 Pain in right shoulder (principal); S43.401A Unspecified sprain of right shoulder joint, initial encounter; M75.01 Adhesive capsulitis of right shoulder; M77.8 Other enthesopathies, not elsewhere classified; I10 Essential (primary) hypertension; E78.5 Hyperlipidemia, unspecified
CPT/HCPCS: 99283

== ENCOUNTER 2021-05-31 11:49 | Emergency (ER) | payer MEDICARE ==
[~2021-05-31] VITALS: Ht 180.3 cm; Wt 95.3 kg
[~2021-05-31 11:49] MED LIST changes: +IBUPROFEN IB200 MG PO; +TYLENOL # 31 EA PO
[2021-05-31] MEDS ORDERED: KETOROLAC TROMETHAMINE 30 MG/ML VIAL IV STA (12:02)
[2021-05-31] MEDS ORDERED: SODIUM CHLORIDE 0.9% 1000ML 1,000 ML IV STA (12:02)
[2021-05-31] MEDS ORDERED: ONDANSETRON HCL INJ 2MG/ML 2ML 2 MG/ML VIAL ONE (12:16)
[2021-05-31] MEDS ORDERED: SODIUM CHLORIDE 0.9% 1000ML 1,000 ML ONE (12:16)
[2021-05-31] MEDS ORDERED: KETOROLAC TROMETHAMINE 30 MG/ML VIAL ONE (12:16)
[2021-05-31] MEDS ORDERED: ONDANSETRON HCL INJ 2MG/ML 2ML 2 MG/ML VIAL IV STA (12:19)
[2021-05-31] MEDS ORDERED: FLOMAX0.4 MG PO (12:53)
[2021-05-31] MEDS ORDERED: MOTRIN800 MG PO (12:53)
[2021-05-31] MEDS ORDERED: ONDANSETRON ODT4 MG PO (12:53)
== END 2021-05-31 12:59 | disposition home or self-care (01) ==
LOC: FSED 12:02
DX: R10.31 Right lower quadrant pain (principal); N20.0 Calculus of kidney; K57.90 Diverticulosis of intestine, part unspecified, without perforation or abscess without bleeding; I10 Essential (primary) hypertension; E78.5 Hyperlipidemia, unspecified; K43.9 Ventral hernia without obstruction or gangrene; Z98.0 Intestinal bypass and anastomosis status
CPT/HCPCS: 74176; 80048; 81003; 85025; 96374; 96376; 99284; J1885; J2405; J7030

== ENCOUNTER 2021-07-28 06:38 | Inpatient (IN) | payer MEDICARE ==
[~2021-07-28] VITALS: Ht 180.3 cm; Wt 91.9 kg
[~2021-07-28 06:38] MED LIST changes: +FLOMAX0.4 MG PO; +MOTRIN800 MG PO; +ONDANSETRON ODT4 MG PO
[2021-07-28] MEDS ORDERED: SODIUM CHLORIDE 0.9% 50ML 50 ML ONE (08:20)
[2021-07-28] MEDS ORDERED: IOPAMIDOL 370 MG/ML 200 ML INFUS..BTL INJ ONE (08:21)
[2021-07-28] MEDS ORDERED: APIXABAN 5 MG TABLET PO SCH (09:30)
[2021-07-28] MEDS: ENOXAPARIN SODIUM INJ 100 MG/ML SYR SC SCH ×2 (09:30→20:29)
[2021-07-28 11:39] VITALS: BP 134/83
[2021-07-28 11:48] VITALS: BP 134/83
[2021-07-28 11:58] VITALS: BP 134/83
[2021-07-28] MEDS ORDERED: SODIUM CHLORIDE 0.9% 1000ML 1,000 ML IV SCH (12:15)
[2021-07-28 15:06] VITALS: BP 135/78
[2021-07-28 16:02] LABS: CREATINE KINASE MB 0.7 ng/mL (0-5.0)
[2021-07-28] MEDS ORDERED: HYDROCODONE/APAP 5MG-325MG TAB PO PRN (18:45)
[2021-07-28 19:10] VITALS: BP 159/83
[2021-07-28 20:00] VITALS: BP 159/83
[2021-07-28] MEDS: MORPHINE SULFATE INJ 2 MG/ML SYR IV PRN (20:29)
[2021-07-28] MEDS: ONDANSETRON HCL INJ 2MG/ML 2ML 2 MG/ML VIAL IV PRN (20:33)
[2021-07-29] VITALS (8 sets, daily range): BP systolic 131–152; BP diastolic 73–89
[2021-07-29] MEDS: MORPHINE SULFATE INJ 2 MG/ML SYR IV PRN ×4 (02:17→20:51)
[2021-07-29 06:00] LABS: INR 1.14; PROTHROMBIN TIME 15.1 seconds (11.9-14.5)
[2021-07-29 06:01] LABS: PARTIAL THROMBOPLASTIN TIME 42.1 seconds (23.8-35.5)
[2021-07-29 06:04] LABS: BASOPHILS % 0.4 % (0.0-1.0); EOSINOPHILS # (AUTO) 0.2 (0.0-0.4); EOSINOPHILS % 2.3 % (0.0-6.0); HEMATOCRIT 39.6 % (38.2-49.6); HEMOGLOBIN 12.6 g/dL (14.0-18.0); LYMPHOCYTES # (AUTO) 1.5 (1.0-3.2); LYMPHOCYTES % 21.1 % (18.0-39.1); MEAN CORPUSCULAR HEMOGLOBIN 30.1 pg (28-32); MEAN CORPUSCULAR HGB CONC 31.8 g/dL (31-35); MEAN CORPUSCULAR VOLUME 94.5 fL (81-99); MONOCYTES # (AUTO) 0.9 (0.2-0.8); MONOCYTES % 12.1 % (4.4-11.3); NEUTROPHILS # (AUTO) 4.5 (2.1-6.9); NEUTROPHILS % 63.7 % (38.7-80.0); PLATELET COUNT 102 x10e3/uL (140-360); RED BLOOD COUNT 4.19 x10e6/uL (4.3-5.7); RED CELL DISTRIBUTION WIDTH 12.5 % (11.7-14.4)
[2021-07-29 06:16] LABS: CREATINE KINASE 22 IU/L (30-200)
[2021-07-29 06:40] LABS: ALBUMIN 3.5 g/dL (3.5-5.0); ALBUMIN/GLOBULIN RATIO 1.1 (0.8-2.0); ANION GAP 14.1 mmol/L (8-16); CALCIUM 8.3 mg/dL (8.4-10.2); CREATININE, SERUM 1.05 mg/dL (0.72-1.25); POTASSIUM 4.1 mmol/L (3.5-5.1)
[2021-07-29] MEDS: CRESTOR 10MG PO SCH (08:37)
[2021-07-29] MEDS: ASPIRIN 81 MG CHEW TAB PO SCH (08:37)
[2021-07-29] MEDS: ATENOLOL 50 MG TAB PO SCH (08:38)
[2021-07-29] MEDS: ENOXAPARIN SODIUM INJ 100 MG/ML SYR SC SCH (08:38)
[2021-07-29] MEDS ORDERED: POLYETHYLENE GLYCOL 3350 17 GM PACK PO ONE ×2 (13:45→15:45)
[2021-07-29] MEDS ORDERED: XARELTO20 MG PO (16:41)
[2021-07-29] MEDS: RIVAROXABAN 15 MG TABLET PO SCH (16:43)
[2021-07-30] VITALS: BP 134/70
[2021-07-30] MEDS: MORPHINE SULFATE INJ 2 MG/ML SYR IV PRN ×2 (03:10→09:38)
[2021-07-30 04:00] VITALS: BP 130/74
[2021-07-30 08:07] VITALS: BP 92/60
[2021-07-30 08:25] VITALS: BP 92/60
[2021-07-30] MEDS: ATENOLOL 50 MG TAB PO SCH (08:28)
[2021-07-30] MEDS: RIVAROXABAN 15 MG TABLET PO SCH (08:28)
[2021-07-30] MEDS: CRESTOR 10MG PO SCH (08:28)
[2021-07-30] MEDS: ASPIRIN 81 MG CHEW TAB PO SCH (08:28)
[2021-07-30] MEDS ORDERED: POLYETHYLENE GLYCOL 3350 17 GM PACK PO NR (09:30)
[2021-07-30] MEDS: ONDANSETRON HCL INJ 2MG/ML 2ML 2 MG/ML VIAL IV PRN (09:38)
[2021-07-30 11:58] VITALS: BP 99/58
== END 2021-07-30 12:15 | disposition home or self-care (01) | DRG 176 ==
LOC: FSED 07:14 → ERHOLD 09:54 → MED/SURG2 11:35
PROVIDERS: ADMIT Family Medicine; ATTEND Family Medicine
DX: I26.99 Other pulmonary embolism without acute cor pulmonale (principal); I25.10 Atherosclerotic heart disease of native coronary artery without angina pectoris; N20.0 Calculus of kidney; E78.5 Hyperlipidemia, unspecified; Z90.49 Acquired absence of other specified parts of digestive tract; Z20.822 Contact with and (suspected) exposure to COVID-19; R09.02 Hypoxemia; R91.1 Solitary pulmonary nodule; M10.9 Gout, unspecified
CPT/HCPCS: 36415; 71045; 71260; 80048; 80053; 80076; 82550; 82553; 83880; 84484; 85025; 85379; 85610; 85730; 93005; 93306; 93970; 99285; J1650; J2270; J2405; Q9967; U0002